=== PATIENT | male | born 1935 | race Caucasian/White ===

== ENCOUNTER → 2019-10-16 | Outpatient (CLI) | payer MEDICARE, BC, OTHER ==
--- NOTE | 2019-10-16 08:51 | REP ---
Urinary tract sonogram: History: Chronic kidney disease stage III. Comparison: No comparison study. Findings: Scanning at the level of the urinary bladder shows no abnormality. Renal cortical echogenicity pattern is normal bilaterally and contours are smooth. There is no evidence of hydronephrosis, cyst, mass, or calculus in either kidney. Prostate appears mildly prominent measuring 5.0 x 4.3 x 4.6 cm on transabdominal images. Calculated glandular volume 52 ml. The right kidney measures 10.3 x 5.8 x 5.1 cm. Left renal dimensions are 10.4 x 5.0 x 5.2 cm. Impression: Enlarged prostate gland, otherwise negative urinary tract sonography. Electronically Signed by Mamadou Grey MD 10/16/2019 08:43 A
--- NOTE | 2019-10-16 11:03 | REP ---
RENAL NUCLEAR SCAN WITH FLOW AND FUNCTION: Following the intravenous administration of 8.8 millicuries technetium 99m MAG3, immediate flow images are obtained in the posterior projection. There is a greater degree of perfusion of the right kidney compared to the left. Delayed renal function images are performed in the posterior projections for 30 minutes. Both kidneys are symmetrical in size. There is bilateral cortical uptake with no focal defect. Bilateral symmetrical excretion. There appears to be an extrarenal pelvis bilaterally with no hydronephrosis. Splint function is 35.2% on the left and 64.8% on the right. [id number] is 3 minutes bilaterally. T-1/2 could not be calculated because is it in excess of 30 minutes. Renal function curves are markedly shallow in their downward slopes. There is mild postvoid residual in the urinary bladder after voiding with clearance of the activity from each renal pelvis. IMPRESSION: Compromised renal function bilaterally with no evidence of urinary tract obstruction. There is a greater degree of split function on the right compared to the left. Electronically Signed by Jasson Coleman MD 10/16/2019 12:18 P
== END ==
LOC: M RAD 08:07
PROVIDERS: ATTEND Internal Medicine Nephrology
DX: N18.3 Chronic kidney disease, stage 3 (moderate) (principal); I12.9 Hypertensive chronic kidney disease with stage 1 through stage 4 chronic kidney disease, or unspecified chronic kidney disease
CPT/HCPCS: 76775; 78707; A9562

== ENCOUNTER → 2020-03-03 | Outpatient (REF) | payer MEDICARE, OTHER ==
[2020-03-03 19:13] LABS: PERCENT SATURATION 22.4 % (19.7-50.0)
== END ==
LOC: M LAB REF 18:26
PROVIDERS: ATTEND Internal Medicine Nephrology
DX: D50.9 Iron deficiency anemia, unspecified (principal)

== ENCOUNTER → 2021-01-29 | Outpatient (CLI) | payer MEDICARE, OTHER ==
--- NOTE | 2021-01-29 14:30 | REP ---
INDICATION: SCIATICA. COMPARISON: 10/03/2006. TECHNIQUE: Seven views lumbosacral spine including flexion and extension lateral views. FINDINGS: There is no compression fracture. There is minimal fixed retrolisthesis of L2 on L3 and L3 on L4, as well as anterolisthesis of L4 on L5 and L5 on S1. These findings do not change with flexion or extension. There is moderate diffuse spurring again noted. There is moderate disc space narrowing and subchondral sclerosis at L2-3 through L5-S1. There is sclerosis and spurring at the posterior facet joints at L4-5 and L5-S1. The posterior elements are intact. There is mild curvature toward the right. IMPRESSION: Diffuse degenerative changes as discussed in detail above, not significantly changed compared to the prior study. <Electronically signed by Jasson Coleman > 01/29/21 [id number]
== END ==
LOC: M PLALAB 13:53
PROVIDERS: ATTEND Physician Assistant
DX: M54.41 Lumbago with sciatica, right side (principal); M51.36 Other intervertebral disc degeneration, lumbar region
CPT/HCPCS: 72114; 96372; G0463; J1040

== ENCOUNTER → 2021-02-10 | Outpatient (CLI) | payer MEDICARE, BC, OTHER ==
--- NOTE | 2021-02-10 10:15 | REPVR ---
PROCEDURE INFORMATION: Exam: MR Lumbar Spine Without Contrast Exam date and time: 02/10/2021 9:08 AM Age: 85 years old Clinical indication: Low back pain; Additional info: Acute RT side lbp w/ stenosis TECHNIQUE: Imaging protocol: Multiplanar magnetic resonance images of the lumbar spine without intravenous contrast. COMPARISON: CR Spine,LS wBENDING MIN 6 VIEWS 01/29/2021 2:18 PM FINDINGS: Vertebrae: Mild dextroscoliosis. 5 mm grade 1 spondylolisthesis of L5 over S1. Otherwise,The lumbar vertebral bodies are normal in height,signal intensity and alignment.No acute fracture or dislocation is seen. Spinal epidural space: There is no evidence of epidural masses or hemorrhage. Spinal cord: The conus medullaris is normal. L1-L2: There is no significant degenerative disc herniation.The spinal canal and neural foramina are patent and without significant stenosis. L2-L3: Markedly reduced in height and T2 signal indicating degeneration. Moderate degenerative endplate changes. Moderate diffuse posterior herniation with mild inferior migration. Moderate facet arthropathy.There is thickening of the ligamentum flavum.There is severe spinal canal stenosis, with an AP canal dimension of 6 mm. There is compression on the thecal sac and crowding of the cauda equina nerve roots at this level.There is moderate right foraminal stenosis. There is severe left foraminal stenosis. L3-L4: Moderately reduced in height and T2 signal indicating degeneration. Moderate posterior and right foraminal protrusion. Moderate left foraminal protrusion. Moderate facet arthropathy.There is thickening of the ligamentum flavum.There is moderate spinal canal stenosis, with an AP canal dimension of 8 mm. There is compression on the thecal sac and crowding of the cauda equina nerve roots at this level.There is severe bilateral foraminal stenosis. L4-L5: Markedly reduced in height and T2 signal indicating degeneration. Moderate degenerative endplate changes. Small diffuse posterior herniation. Severe facet arthropathy.There is thickening of the ligamentum flavum.There is severe spinal canal stenosis, with an AP canal dimension of 6 mm. There is compression on the thecal sac and crowding of the cauda equina nerve roots at this level.There is severe bilateral foraminal stenosis. L5-S1: Moderately reduced in height and T2 signal indicating degeneration. Moderate diffuse posterior herniation. Severe facet arthropathy.There is severe spinal canal stenosis, with an AP canal dimension of 6 mm. There is compression on the thecal sac and crowding of the cauda equina nerve roots at this level.There is severe bilateral foraminal stenosis. Soft tissues: The prevertebral soft tissues appear normal. 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 Electronically signed by: Ishmael Sauer On 02/10/2021 10:15:45 AM
== END ==
LOC: M RAD 07:31
PROVIDERS: ATTEND Physician Assistant
DX: M54.41 Lumbago with sciatica, right side (principal); M48.061 Spinal stenosis, lumbar region without neurogenic claudication; M47.26 Other spondylosis with radiculopathy, lumbar region

== ENCOUNTER → 2021-03-23 | Outpatient (REF) | payer MEDICARE, BC, OTHER ==
[2021-03-24 14:29] LABS: PERCENT SATURATION 15.3 % (19.7-50.0)
== END ==
LOC: M LAB REF 13:05
PROVIDERS: ATTEND Internal Medicine Nephrology
DX: D50.9 Iron deficiency anemia, unspecified (principal)

== ENCOUNTER 2022-03-01 16:33 | Emergency (ER) | payer MEDICARE, BC, OTHER ==
[~2022-03-01] VITALS: Ht 162.6 cm; Wt 61.4 kg
[2022-03-01 17:12] LABS: BASO % 0.4 % (0.0-1.0); EOS # 0.3 10^3/uL (0.0-0.5); EOS % 3.2 % (0.0-3.0); HEMATOCRIT 31.9 % (42.0-52.0); HEMOGLOBIN 10.5 g/dl (13.5-17.5); LYMPH # 1.3 10^3/uL (1.5-5.0); LYMPH % 15.9 % (24.0-44.0); MEAN CORPUSCULAR HEMOGLOBIN 32.2 pg (27.0-33.0); MEAN CORPUSCULAR HGB CONC 32.9 g/dl (32.0-36.5); MEAN CORPUSCULAR VOLUME 97.9 fl (80.0-96.0); MONO # 0.9 10^3/uL (0.0-0.8); MONO % 10.7 % (2.0-8.0); NEUTROPHILS # 5.6 10^3/uL (1.5-8.5); NEUTROPHILS % 69.3 % (36.0-66.0); PLATELET COUNT, AUTOMATED 268 10^3/uL (150-450); RED BLOOD COUNT 3.26 10^6/uL (4.30-6.10); WHITE BLOOD COUNT 8.1 10^3/uL (4.0-10.0)
[2022-03-01] MEDS ORDERED: NITROGLYCERIN 0.4 MG SUBL TABLET SL PRN (17:35)
[2022-03-01 17:49] LABS: CALCIUM LEVEL 8.8 MG/DL (8.8-10.2); CREATININE FOR GFR 2.33 MG/DL (0.70-1.30); GLOMERULAR FILTRATION RATE 28.4 (>35); POTASSIUM SERUM 5.5 MEQ/L (3.5-5.1)
[2022-03-01] MEDS ORDERED: HEPARIN SOD (PORCINE) 5000UNITS/ML 1ML VIAL/SYRINGE IV ONE (21:20)
[2022-03-01] MEDS ORDERED: HEPARIN SOD (PORCINE) 5000UNITS/ML 1ML VIAL/SYRINGE IV PRN (21:20)
[2022-03-01 22:28] LABS: HEMATOCRIT 31.2 % (42.0-52.0); HEMOGLOBIN 10.1 g/dl (13.5-17.5); MEAN CORPUSCULAR HEMOGLOBIN 31.9 pg (27.0-33.0); MEAN CORPUSCULAR HGB CONC 32.4 g/dl (32.0-36.5); MEAN CORPUSCULAR VOLUME 98.4 fl (80.0-96.0); PLATELET COUNT, AUTOMATED 255 10^3/uL (150-450); RED BLOOD COUNT 3.17 10^6/uL (4.30-6.10); WHITE BLOOD COUNT 7.1 10^3/uL (4.0-10.0)
[2022-03-01 22:39] LABS: PARTIAL THROMBOPLASTIN TIME 26.7 SECONDS (25.9-37.0)
[2022-03-01 22:41] LABS: D-DIMER QUANT 1180.1 ng/ml (<500)
[2022-03-01 22:47] LABS: RSV AMPLIFICATION NEGATIVE (NEGATIVE)
[2022-03-01] MEDS: HEPARIN DRIP 25,000 UNITS in IV 1 EA IV SCH (22:50)
[2022-03-02] MEDS: HEPARIN DRIP 25,000 UNITS in IV 1 EA IV SCH (06:37)
[2022-03-02 06:38] VITALS: BP 176/74
== END 2022-03-02 06:42 | disposition short-term general hospital (02) ==
LOC: M ED 16:33
DX: I21.4 Non-ST elevation (NSTEMI) myocardial infarction (principal); I10 Essential (primary) hypertension; E78.5 Hyperlipidemia, unspecified; N18.30 Chronic kidney disease, stage 3 unspecified; N40.0 Benign prostatic hyperplasia without lower urinary tract symptoms; M10.9 Gout, unspecified; M00-M99 Diseases of the musculoskeletal system and connective tissue; Z87.891 Personal history of nicotine dependence
CPT/HCPCS: 71045; 80048; 84484; 85025; 85027; 85379; 85730; 87631; 93005; 93041; 94760; 96365; 96366; 99285; J1644

== ENCOUNTER → 2022-03-11 | Outpatient (REF) | payer MEDICARE, BC, OTHER ==
[2022-03-11 19:18] LABS: PERCENT SATURATION 21.4 % (19.7-50.0)
== END ==
LOC: M LAB REF 16:53
PROVIDERS: ATTEND Internal Medicine Nephrology
DX: D50.9 Iron deficiency anemia, unspecified (principal)

== ENCOUNTER 2022-04-19 11:48 | Emergency (ER) | payer MEDICARE, BC, OTHER ==
[~2022-04-19] VITALS: Ht 165.1 cm; Wt 61.4 kg
[2022-04-19 12:29] LABS: BASO % 0.3 % (0.0-1.0); EOS # 0.2 10^3/uL (0.0-0.5); EOS % 1.9 % (0.0-3.0); HEMATOCRIT 30.7 % (42.0-52.0); HEMOGLOBIN 9.7 g/dl (13.5-17.5); LYMPH # 1.3 10^3/uL (1.5-5.0); LYMPH % 11.5 % (24.0-44.0); MEAN CORPUSCULAR HEMOGLOBIN 31.2 pg (27.0-33.0); MEAN CORPUSCULAR HGB CONC 31.6 g/dl (32.0-36.5); MEAN CORPUSCULAR VOLUME 98.7 fl (80.0-96.0); MONO % 8.6 % (2.0-8.0); NEUTROPHILS # 8.5 10^3/uL (1.5-8.5); NEUTROPHILS % 77.2 % (36.0-66.0); PLATELET COUNT, AUTOMATED 273 10^3/uL (150-450); RED BLOOD COUNT 3.11 10^6/uL (4.30-6.10)
[2022-04-19 12:41] LABS: INR 1.06
[2022-04-19 12:42] LABS: PARTIAL THROMBOPLASTIN TIME 25.4 SECONDS (24.8-34.2)
[2022-04-19 13:12] LABS: ALBUMIN 3.3 G/DL (3.2-5.2); BILIRUBIN,DIRECT 0.2 MG/DL (<0.4); BILIRUBIN,TOTAL 0.5 MG/DL (0.3-1.2); CALCIUM LEVEL 8.5 MG/DL (8.3-10.6); CK-MB VALUE MASS 1.8 NG/ML (<3.6); CREATININE FOR GFR 1.91 MG/DL (0.70-1.30); FREE T4 1.05 NG/DL (0.89-1.76); GLOMERULAR FILTRATION RATE 35.7 (>35); MAGNESIUM LEVEL 1.6 MG/DL (1.8-2.4); MB/CK RELATIVE INDEX 3.33 (< OR =4); POTASSIUM SERUM 5.1 MMOL/L (3.5-5.1); THYROID STIMULATING HORMONE 0.269 uIU/ML (0.55-4.78); TOTAL PROTEIN 6.2 G/DL (5.7-8.2)
[2022-04-19 13:59] LABS: CK-MB VALUE MASS 1.5 NG/ML (<3.6); MB/CK RELATIVE INDEX 3.57 (< OR =4)
[2022-04-19] MEDS ORDERED: MAG SULF 1GM/100ML (MAG RUN) 1 GM in IV 1 EA IV ONE ×2 (14:30→14:35)
[2022-04-19] MEDS ORDERED: clonazePAM 0.5 MG TAB PO ONE (14:35)
[2022-04-19] MEDS ORDERED: MAGN64TASA PO (18:15)
[2022-04-19] MEDS ORDERED: CLON0.5T17 PO (18:15)
[2022-04-19 18:21] VITALS: BP 163/74
[2022-04-19 21:06] LABS: CHOLESTEROL RISK RATIO 2.83 (<5); HDL CHOLESTEROL 39.9 MG/DL (>40); LDL CHOLESTEROL 44.1 MG/DL (<100)
== END 2022-04-19 18:37 | disposition home or self-care (01) ==
LOC: M ED 11:48
DX: I49.8 Other specified cardiac arrhythmias (principal); E83.42 Hypomagnesemia; I10 Essential (primary) hypertension; E78.5 Hyperlipidemia, unspecified; Z95.5 Presence of coronary angioplasty implant and graft; Z82.49 Family history of ischemic heart disease and other diseases of the circulatory system
CPT/HCPCS: 71045; 80048; 80061; 80076; 82550; 82553; 83690; 83735; 84439; 84443; 84484; 85025; 85610; 85730; 93005; 93041; 94760; 96365; 96366; 96376; 99285; J3475

== ENCOUNTER → 2022-04-30 | Outpatient (CLI) | payer MEDICARE, BC, OTHER ==
[~2022-04-30] MED LIST: CLON0.5T17 PO; MAGN64TASA PO
[2022-04-30 18:21] LABS: BASO % 0.4 % (0.0-1.0); EOS # 0.4 10^3/uL (0.0-0.5); EOS % 5.4 % (0.0-3.0); HEMATOCRIT 31.6 % (42.0-52.0); LYMPH # 1.2 10^3/uL (1.5-5.0); LYMPH % 16.6 % (24.0-44.0); MEAN CORPUSCULAR HEMOGLOBIN 31.9 pg (27.0-33.0); MEAN CORPUSCULAR HGB CONC 31.6 g/dl (32.0-36.5); MONO # 0.8 10^3/uL (0.0-0.8); MONO % 10.5 % (2.0-8.0); NEUTROPHILS # 4.9 10^3/uL (1.5-8.5); NEUTROPHILS % 66.8 % (36.0-66.0); PLATELET COUNT, AUTOMATED 262 10^3/uL (150-450); RED BLOOD COUNT 3.13 10^6/uL (4.30-6.10); WHITE BLOOD COUNT 7.4 10^3/uL (4.0-10.0)
[2022-04-30 19:33] LABS: HEMOGLOBIN A1c 6.3 % (4.0-6.0)
[2022-04-30 19:36] LABS: MAGNESIUM LEVEL 1.7 MG/DL (1.8-2.4)
[2022-04-30 20:39] LABS: FREE T4 0.87 NG/DL (0.89-1.76)
[2022-04-30 21:10] LABS: ALBUMIN 3.5 G/DL (3.2-5.2); BLOOD UREA NITROGEN 45 MG/DL (9-23); CALCIUM LEVEL 9.4 MG/DL (8.3-10.6); CARBON DIOXIDE LEVEL 21 MMOL/L (20-31); CHLORIDE LEVEL 114 MMOL/L (98-107); CREATININE FOR GFR 1.83 MG/DL (0.70-1.30); FERRITIN 102.6 NG/ML (10.5-307.3); GLOMERULAR FILTRATION RATE 37.5 (>35); GLUCOSE, FASTING 120 MG/DL (74-106); PHOSPHORUS LEVEL 3.2 MG/DL (2.4-5.1); POTASSIUM SERUM 6.2 MMOL/L (3.5-5.1); SODIUM LEVEL 142 MMOL/L (136-145); THYROID PEROXIDASE ANTIBODY < 28.0 U/ML (<60.0); THYROID STIMULATING HORMONE 0.442 uIU/ML (0.55-4.78); TOTAL PROTEIN 6.6 GM/DL (6.4-8.2); VITAMIN B12 LEVEL 580 PG/ML (211-911)
== END ==
LOC: M PLALAB 14:45
PROVIDERS: ATTEND Family Medicine
DX: I10 Essential (primary) hypertension (principal); D63.8 Anemia in other chronic diseases classified elsewhere; Z12.5 Encounter for screening for malignant neoplasm of prostate; R73.01 Impaired fasting glucose; E78.2 Mixed hyperlipidemia
CPT/HCPCS: 36415; 80069; 82607; 82728; 83036; 83735; 83880; 84165; 84439; 84443; 84445; 85025; 86335; 86376; G0103

== ENCOUNTER → 2022-08-26 | Outpatient (REF) | payer MEDICARE, OTHER ==
[2022-08-26 17:56] LABS: PERCENT SATURATION 27.5 % (19.7-50.0)
[2022-08-26 17:59] LABS: FERRITIN 404.7 NG/ML (10.5-307.3)
== END ==
LOC: M LAB REF 16:58
PROVIDERS: ATTEND Internal Medicine Nephrology
DX: D50.9 Iron deficiency anemia, unspecified (principal)

== ENCOUNTER 2022-09-04 11:42 | Inpatient (IN) | payer MEDICARE, BC, OTHER ==
[2022-09-04] VITALS (8 sets, daily range): BP systolic 130–170; BP diastolic 59–91
[~2022-09-04] VITALS: Ht 162.6 cm; Wt 68.9 kg
[2022-09-04] MEDS: ASPIRIN 81MG ENTERIC TABLET PO SCH (09:00)
[2022-09-04 12:57] LABS: BASO % 0.2 % (0.0-1.0); EOS % 0.2 % (0.0-3.0); HEMATOCRIT 23.2 % (42.0-52.0); LYMPH # 0.6 10^3/uL (1.5-5.0); LYMPH % 4.6 % (24.0-44.0); MEAN CORPUSCULAR HEMOGLOBIN 31.7 pg (27.0-33.0); MEAN CORPUSCULAR HGB CONC 34.5 g/dl (32.0-36.5); MEAN CORPUSCULAR VOLUME 92.1 fl (80.0-96.0); MONO # 1.2 10^3/uL (0.0-0.8); MONO % 9.4 % (2.0-8.0); NEUTROPHILS # 10.6 10^3/uL (1.5-8.5); NEUTROPHILS % 85.1 % (36.0-66.0); PLATELET COUNT, AUTOMATED 234 10^3/uL (150-450); RED BLOOD COUNT 2.52 10^6/uL (4.30-6.10); WHITE BLOOD COUNT 12.4 10^3/uL (4.0-10.0)
[2022-09-04 13:18] LABS: INR 1.14; PROTHROMBIN TIME 14.8 SECONDS (12.5-14.5)
[2022-09-04 13:19] LABS: PARTIAL THROMBOPLASTIN TIME 31.4 SECONDS (24.8-34.2)
[2022-09-04 13:45] LABS: ALBUMIN 2.2 G/DL (3.2-5.2); BILIRUBIN,DIRECT 0.6 MG/DL (<0.4); BILIRUBIN,TOTAL 0.9 MG/DL (0.3-1.2); CALCIUM LEVEL 7.4 MG/DL (8.3-10.6); CK-MB VALUE MASS 122.1 NG/ML (<3.6); CREATININE FOR GFR 8.92 MG/DL (0.70-1.30); FREE T4 0.62 NG/DL (0.89-1.76); MB/CK RELATIVE INDEX 0.35 (< OR =4); POTASSIUM SERUM 6.8 MMOL/L (3.5-5.1); THYROID STIMULATING HORMONE 0.627 uIU/ML (0.55-4.78); TOTAL PROTEIN 5.8 G/DL (5.7-8.2)
[2022-09-04] MEDS ORDERED: CALCIUM GLUCONATE 1,000 MG in D5W MINI-BAG PLUS 100 ML IV ONE (14:10)
[2022-09-04] MEDS ORDERED: SODIUM BICARBONATE 150 MEQ in STERILE WATER LITER BAG 1,000 ML IV SCH (14:10)
[2022-09-04 14:40] LABS: ACETAMINOPHEN LEVEL < 2.0 UG/ML (10.0-20.0); SALICYLATE LEVEL < 3.0 MG/DL (<30)
[2022-09-04 14:44] LABS: ABG HCO3 11.8 MEQ/L (22.0-26.0); ABG O2 SATURATION 97.6 % (95.0-99.0); ABG PARTIAL PRESSURE CO2 27.3 mmHg (35.0-45.0); ABG PARTIAL PRESSURE O2 112.1 mmHg (75.0-100.0); ABG STANDARD HCO3 13.4 MEQ/L (22.0-26.0); ABG TOTAL CO2 12.7 MEQ/L (23.0-31.0); ABG pH (ARTERIAL) 7.255 UNITS (7.350-7.450)
[2022-09-04] MEDS ORDERED: DEXTROSE 50% 50ML SYRINGE IV STA ×2 (14:53→23:09)
[2022-09-04] MEDS ORDERED: HumuLIN R (REGULAR) INSULIN (NovoLIN R) **100U/ML** PER UNIT IV STA ×2 (14:53→23:09)
[2022-09-04 14:56] LABS: CK-MB VALUE MASS 114.1 NG/ML (<3.6); CPK CREATINE PHOSPHOKINASE 33833 U/L (46-171); MB/CK RELATIVE INDEX 0.33 (< OR =4); POTASSIUM SERUM 6.7 MMOL/L (3.5-5.1)
[2022-09-04] MEDS ORDERED: ATOR80TA59 PO (15:02)
[2022-09-04] MEDS ORDERED: TRAV04OPD OU (15:02)
[2022-09-04] MEDS ORDERED: CLOP75TA2 PO (15:02)
[2022-09-04] MEDS ORDERED: MAGN50TA PO (15:02)
[2022-09-04] MEDS ORDERED: VELT1POW3 PO (15:02)
[2022-09-04] MEDS ORDERED: ALLO100T PO (15:02)
[2022-09-04] MEDS ORDERED: TORS10TA3 PO (15:02)
[2022-09-04] MEDS ORDERED: AMLO1TAB24 PO (15:02)
[2022-09-04] MEDS ORDERED: AZILSARTAN MEDOXOMIL PO (15:02)
[2022-09-04] MEDS ORDERED: HOME MED LIST COMPLETE! XX SCH (15:05)
[2022-09-04] MEDS ORDERED: PATIROMER SORBITEX CALCIUM 8.4 GM POWDER PACKET (VELTASSA) PO ONE (15:20)
[2022-09-04] MEDS ORDERED: ALBUTEROL SULFATE 2.5MG/0.5ML INH NEB SOLN NEB ONE (15:25)
[2022-09-04] MEDS ORDERED: DEXTROSE 50% 50ML SYRINGE IV PRN (15:45)
[2022-09-04] MEDS ORDERED: GLUCOSE 4GM CHEW TABLET PO PRN (15:45)
[2022-09-04] MEDS ORDERED: GLUCAGON INJ 1MG VIAL SC PRN (15:45)
[2022-09-04] MEDS: PANTOPRAZOLE 40MG VIAL IV SCH (16:24)
[2022-09-04] MEDS: HEPARIN SOD (PORCINE) 5000UNITS/ML 1ML VIAL/SYRINGE SC SCH (16:25)
[2022-09-04] MEDS ORDERED: INSULIN LISPRO (NovoLOG) PER UNIT SC SCH ×2 (18:00→23:10)
[2022-09-04] MEDS ORDERED: LIDOCAINE 2% 5ML JELLY UROJET TOP ONE (18:00)
[2022-09-04] MEDS: SODIUM BICARBONATE 150 MEQ in STERILE WATER LITER BAG 1,000 ML IV SCH ×2 (18:07→22:17)
[2022-09-04 19:55] LABS: CALCIUM LEVEL 7.6 MG/DL (8.3-10.6); CREATININE FOR GFR 9.04 MG/DL (0.70-1.30); GLOMERULAR FILTRATION RATE 5.9 (>35); POTASSIUM SERUM 5.8 MMOL/L (3.5-5.1)
[2022-09-04 20:10] LABS: HEPATITIS B SURFACE ANTIGEN NEGATIVE (NEGATIVE)
[2022-09-04 20:31] LABS: HEPATITIS B CORE ANTIBODY IGM NEGATIVE (NEGATIVE); HEPATITIS C VIRUS ABY INDEX < 0.0 INDEX (<0.8)
[2022-09-04] MEDS: INSULIN LISPRO (NovoLOG) PER UNIT SC SCH (21:00)
[2022-09-04 22:59] LABS: CALCIUM LEVEL 7.4 MG/DL (8.3-10.6); CREATININE FOR GFR 9.07 MG/DL (0.70-1.30); GLOMERULAR FILTRATION RATE 5.9 (>35)
[2022-09-05] VITALS (46 sets, daily range): BP systolic 67–159; BP diastolic 49–77
[2022-09-05] MEDS: HEPARIN SOD (PORCINE) 5000UNITS/ML 1ML VIAL/SYRINGE SC SCH ×4 (00:28→21:41)
[2022-09-05] MEDS: HYDROMORPHONE HCL 0.5 MG/ 0.5 ML SYRINGE IV PRN ×3 (00:29→18:54)
[2022-09-05 01:04] LABS: HEMOGLOBIN 7.4 g/dl (13.5-17.5)
[2022-09-05 01:07] LABS: HEMATOCRIT 20.9 % (42.0-52.0)
[2022-09-05 06:54] LABS: ALBUMIN 1.9 G/DL (3.2-5.2); BILIRUBIN,TOTAL 0.8 MG/DL (0.3-1.2); CALCIUM LEVEL 7.3 MG/DL (8.3-10.6); CREATININE FOR GFR 9.14 MG/DL (0.70-1.30); GLOMERULAR FILTRATION RATE 5.9 (>35); POTASSIUM SERUM 5.3 MMOL/L (3.5-5.1); TOTAL PROTEIN 5.1 G/DL (5.7-8.2)
[2022-09-05] MEDS ORDERED: FUROSEMIDE 100MG/10ML VIAL IV ONE (07:00)
[2022-09-05] MEDS: INSULIN LISPRO (NovoLOG) PER UNIT SC SCH ×4 (08:07→21:00)
[2022-09-05] MEDS: SODIUM BICARBONATE 150 MEQ in STERILE WATER LITER BAG 1,000 ML IV SCH (08:59)
[2022-09-05 09:07] LABS: VENOUS HCO3 19.5 MEQ/L (23.0-27.0); VENOUS O2 SATURATION 87.4 % (60.0-80.0); VENOUS PARTIAL PRESSURE CO2 38.3 mmHg (38.0-50.0); VENOUS PH 7.324 UNITS (7.330-7.430); VENOUS STANDARD HCO3 19.3 MEQ/L; VENOUS TOTAL CO2 20.6 MEQ/L (24.0-28.0)
[2022-09-05 09:22] LABS: HEMATOCRIT 22.2 % (42.0-52.0); HEMOGLOBIN 7.9 g/dl (13.5-17.5); MEAN CORPUSCULAR HEMOGLOBIN 32.4 pg (27.0-33.0); MEAN CORPUSCULAR HGB CONC 35.6 g/dl (32.0-36.5); PLATELET COUNT, AUTOMATED 216 10^3/uL (150-450); RED BLOOD COUNT 2.44 10^6/uL (4.30-6.10); WHITE BLOOD COUNT 11.3 10^3/uL (4.0-10.0)
[2022-09-05 09:34] LABS: BLOOD UREA NITROGEN 146 MG/DL (9-23); CALCIUM LEVEL 7.5 MG/DL (8.3-10.6); CARBON DIOXIDE LEVEL 20 MMOL/L (20-31); CHLORIDE LEVEL 91 MMOL/L (98-107); CREATININE FOR GFR 9.08 MG/DL (0.70-1.30); GLOMERULAR FILTRATION RATE 5.9 (>35); GLUCOSE, FASTING 141 MG/DL (74-106); POTASSIUM SERUM 5.1 MMOL/L (3.5-5.1); SODIUM LEVEL 128 MMOL/L (136-145)
[2022-09-05] MEDS ORDERED: HEPARIN 1,000UNITS/ML 10ML VIAL (FOR RADIOLOGY & DIALYSIS ONLY) IV PRN (09:40)
[2022-09-05] MEDS ORDERED: SODIUM CHLORIDE 0.9% 1000ML IV PRN (09:40)
[2022-09-05] MEDS ORDERED: HEPARIN 1,000UNITS/ML 10ML VIAL (FOR RADIOLOGY & DIALYSIS ONLY) XX SCH (09:40)
[2022-09-05 12:10] LABS: HEPATITIS B SURFACE ANTIBODY POSITIVE (POSITIVE)
[2022-09-05 12:22] LABS: HEPATITIS B SURFACE ANTIGEN NEGATIVE (NEGATIVE)
[2022-09-05] MEDS ORDERED: oxyBUTYnin 5 MG TAB PO PRN (12:30)
[2022-09-05 12:43] LABS: HEPATITIS B CORE ANTIBODY IGM NEGATIVE (NEGATIVE); HEPATITIS C VIRUS ABY INDEX < 0.0 INDEX (<0.8)
[2022-09-05] MEDS ORDERED: LIDOCAINE 2% 5ML JELLY UROJET TOP ONE (14:00)
[2022-09-05] MEDS: CLOPIDOGREL 75 MG TAB PO SCH (15:15)
[2022-09-05] MEDS: ASPIRIN 81MG ENTERIC TABLET PO SCH (15:15)
[2022-09-05] MEDS ORDERED: LORazepam 2 MG/ML 1ML VIAL As Ordered ONE (15:16)
[2022-09-05] MEDS ORDERED: LORazepam 2 MG/ML 1ML VIAL IV STA ×2 (15:17→18:28)
[2022-09-05] MEDS: PANTOPRAZOLE 40MG VIAL IV SCH (16:11)
[2022-09-05 17:23] LABS: CALCIUM LEVEL 7.9 MG/DL (8.3-10.6); CREATININE FOR GFR 4.77 MG/DL (0.70-1.30); GLOMERULAR FILTRATION RATE 12.4 (>35); POTASSIUM SERUM 4.8 MMOL/L (3.5-5.1)
[2022-09-05] MEDS ORDERED: NS 250 ML IV ONE (22:45)
[2022-09-05] MEDS ORDERED: HALOPERIDOL 5MG/ML 1ML VIAL IM STA (22:50)
[2022-09-06] VITALS (74 sets, daily range): BP systolic 71–175; BP diastolic 35–105
[2022-09-06] MEDS ORDERED: NS 250 ML IV ONE ×2 (00:20→05:35)
[2022-09-06] MEDS ORDERED: OLANZapine INTRAMUSCULAR 10MG VIAL IM ONE (01:00)
[2022-09-06] MEDS ORDERED: HALOPERIDOL 5MG/ML 1ML VIAL IM STA (03:06)
[2022-09-06] MEDS: HYDROMORPHONE HCL 0.5 MG/ 0.5 ML SYRINGE IV PRN (04:07)
[2022-09-06 05:35] LABS: MEAN CORPUSCULAR HEMOGLOBIN 32.5 pg (27.0-33.0); MEAN CORPUSCULAR HGB CONC 35.7 g/dl (32.0-36.5); MEAN CORPUSCULAR VOLUME 91.1 fl (80.0-96.0); PLATELET COUNT, AUTOMATED 164 10^3/uL (150-450); RED BLOOD COUNT 1.69 10^6/uL (4.30-6.10); WHITE BLOOD COUNT 13.6 10^3/uL (4.0-10.0)
[2022-09-06 05:42] LABS: HEMATOCRIT 15.4 % (42.0-52.0); HEMOGLOBIN 5.5 g/dl (13.5-17.5)
[2022-09-06] MEDS: HEPARIN SOD (PORCINE) 5000UNITS/ML 1ML VIAL/SYRINGE SC SCH (06:00)
[2022-09-06 06:36] LABS: ALBUMIN 1.9 G/DL (3.2-5.2); BILIRUBIN,TOTAL 0.8 MG/DL (0.3-1.2); CALCIUM LEVEL 8.1 MG/DL (8.3-10.6); CREATININE FOR GFR 5.89 MG/DL (0.70-1.30); GLOMERULAR FILTRATION RATE 9.7 (>35); POTASSIUM SERUM 5.2 MMOL/L (3.5-5.1)
[2022-09-06] MEDS ORDERED: SODIUM CHLORIDE 0.9% 1000ML IV PRN (06:55)
[2022-09-06] MEDS ORDERED: HEPARIN 1,000UNITS/ML 10ML VIAL (FOR RADIOLOGY & DIALYSIS ONLY) XX SCH (06:55)
[2022-09-06] MEDS ORDERED: HEPARIN 1,000UNITS/ML 10ML VIAL (FOR RADIOLOGY & DIALYSIS ONLY) IV PRN (06:55)
[2022-09-06] MEDS: INSULIN LISPRO (NovoLOG) PER UNIT SC SCH ×3 (07:30→18:00)
[2022-09-06] MEDS: NOREPINEPHRINE 4MG IN D5 250ML 4 MG in IV 1 EA IV SCH ×4 (08:48→16:40)
[2022-09-06 08:50] LABS: HEMATOCRIT 17.4 % (42.0-52.0); HEMOGLOBIN 6.1 g/dl (13.5-17.5)
[2022-09-06] MEDS ORDERED: NALOXONE INJ 0.4MG/1ML VIAL As Ordered ONE (08:51)
[2022-09-06] MEDS: ASPIRIN 81MG ENTERIC TABLET PO SCH (09:00)
[2022-09-06] MEDS: CLOPIDOGREL 75 MG TAB PO SCH (09:00)
[2022-09-06] MEDS ORDERED: NOREPINEPHRINE BITARTRATE 16 MG in D5W 484 ML IV SCH (09:15)
[2022-09-06] MEDS ORDERED: NALOXONE INJ 0.4MG/1ML VIAL IV PRN (09:15)
[2022-09-06] MEDS ORDERED: SODIUM CHLORIDE 0.9% 1000ML IV ONE (09:15)
[2022-09-06] MEDS ORDERED: dexmedeTOMidine 200 MCG in IV 1 EA IV SCH (09:30)
[2022-09-06] MEDS ORDERED: NALOXONE INJ 0.4MG/1ML VIAL IV ONE (10:15)
[2022-09-06 11:43] LABS: ABG O2 SATURATION 99.1 % (95.0-99.0); ABG PARTIAL PRESSURE CO2 28.6 mmHg (35.0-45.0); ABG STANDARD HCO3 18.7 MEQ/L (22.0-26.0); ABG TOTAL CO2 17.9 MEQ/L (23.0-31.0); ABG pH (ARTERIAL) 7.393 UNITS (7.350-7.450)
[2022-09-06] MEDS ORDERED: LORazepam 2 MG/ML 1ML VIAL IV STA (11:59)
[2022-09-06 15:26] LABS: HEMATOCRIT 26.4 % (42.0-52.0); HEMOGLOBIN 9.2 g/dl (13.5-17.5)
[2022-09-06 15:55] LABS: ALBUMIN 2.1 G/DL (3.2-5.2); CALCIUM LEVEL 8.5 MG/DL (8.3-10.6); CREATININE FOR GFR 6.02 MG/DL (0.70-1.30); GLOMERULAR FILTRATION RATE 9.5 (>35); PHOSPHORUS LEVEL 8.3 MG/DL (2.4-5.1); POTASSIUM SERUM 5.6 MMOL/L (3.5-5.1)
[2022-09-06] MEDS: PANTOPRAZOLE 40MG VIAL IV SCH (17:03)
[2022-09-07] VITALS (32 sets, daily range): BP systolic 87–143; BP diastolic 50–87
[2022-09-07] MEDS ORDERED: LORazepam 2 MG/ML 1ML VIAL IV STA ×5 (00:43→22:25)
[2022-09-07 05:09] LABS: HEPATITIS A IgG TOTAL Positive (Negative); HEPATITIS B CORE ANTIBODY IGG Negative (Negative)
[2022-09-07 05:34] LABS: BASO % 0.2 % (0.0-1.0); HEMATOCRIT 26.1 % (42.0-52.0); HEMOGLOBIN 9.1 g/dl (13.5-17.5); LYMPH # 0.5 10^3/uL (1.5-5.0); LYMPH % 2.8 % (24.0-44.0); MEAN CORPUSCULAR HEMOGLOBIN 32.2 pg (27.0-33.0); MEAN CORPUSCULAR HGB CONC 34.9 g/dl (32.0-36.5); MEAN CORPUSCULAR VOLUME 92.2 fl (80.0-96.0); MONO % 8.1 % (2.0-8.0); NEUTROPHILS # 17.3 10^3/uL (1.5-8.5); NEUTROPHILS % 88.4 % (36.0-66.0); PLATELET COUNT, AUTOMATED 213 10^3/uL (150-450); RED BLOOD COUNT 2.83 10^6/uL (4.30-6.10); WHITE BLOOD COUNT 19.6 10^3/uL (4.0-10.0)
[2022-09-07] MEDS: INSULIN LISPRO (NovoLOG) PER UNIT SC SCH ×4 (06:00→17:41)
[2022-09-07 06:44] LABS: ALBUMIN 2.2 G/DL (3.2-5.2); BILIRUBIN,TOTAL 1.1 MG/DL (0.3-1.2); CALCIUM LEVEL 8.2 MG/DL (8.3-10.6); CREATININE FOR GFR 6.9 MG/DL (0.70-1.30); GLOMERULAR FILTRATION RATE 8.1 (>35); MAGNESIUM LEVEL 1.9 MG/DL (1.8-2.4); PHOSPHORUS LEVEL 8.4 MG/DL (2.4-5.1); POTASSIUM SERUM 6.2 MMOL/L (3.5-5.1); TOTAL PROTEIN 5.6 G/DL (5.7-8.2)
[2022-09-07 06:50] LABS: MONO # 1.6 10^3/uL (0.0-0.8)
[2022-09-07] MEDS ORDERED: HEPARIN 1,000UNITS/ML 10ML VIAL (FOR RADIOLOGY & DIALYSIS ONLY) IV PRN (07:30)
[2022-09-07] MEDS ORDERED: HEPARIN 1,000UNITS/ML 10ML VIAL (FOR RADIOLOGY & DIALYSIS ONLY) XX SCH (07:30)
[2022-09-07] MEDS ORDERED: SODIUM CHLORIDE 0.9% 1000ML IV PRN (07:30)
[2022-09-07] MEDS ORDERED: NS 1,000 ML IV SCH (07:40)
[2022-09-07] MEDS ORDERED: SODIUM CHLORIDE 0.9% 1000ML IV ONE (08:10)
[2022-09-07] MEDS ORDERED: CLOPIDOGREL 75 MG TAB PO SCH (09:00)
[2022-09-07] MEDS ORDERED: MAG SULF 1GM/100ML (MAG RUN) 1 GM in IV 1 EA IV ONE (10:00)
[2022-09-07] MEDS: ASPIRIN 300 MG SUPP PR SCH (10:28)
[2022-09-07] MEDS: cefTRIAXone SOD 1 GM in D5W MINI-BAG PLUS 50 ML IV SCH (11:34)
[2022-09-07] MEDS ORDERED: methylPREDNISolone 40MG 1ML VIAL IV ONE (15:05)
[2022-09-07] MEDS: IPRATROPIUM 0.5MG/ALBUTEROL 2.5MG INH SOL UD 3ML (DUONEB) NEB SCH ×2 (16:10→23:09)
[2022-09-07] MEDS: PANTOPRAZOLE 40MG VIAL IV SCH (16:25)
[2022-09-08] VITALS (17 sets, daily range): BP systolic 91–142; BP diastolic 43–96
[2022-09-08] MEDS: HYDROMORPHONE HCL 0.5 MG/ 0.5 ML SYRINGE IV PRN (04:46)
[2022-09-08 06:29] LABS: BASO % 0.1 % (0.0-1.0); HEMATOCRIT 23.1 % (42.0-52.0); HEMOGLOBIN 7.7 g/dl (13.5-17.5); LYMPH # 0.5 10^3/uL (1.5-5.0); MEAN CORPUSCULAR HEMOGLOBIN 31.6 pg (27.0-33.0); MEAN CORPUSCULAR HGB CONC 33.3 g/dl (32.0-36.5); MEAN CORPUSCULAR VOLUME 94.7 fl (80.0-96.0); MONO # 0.5 10^3/uL (0.0-0.8); MONO % 2.8 % (2.0-8.0); NEUTROPHILS # 16.3 10^3/uL (1.5-8.5); NEUTROPHILS % 93.6 % (36.0-66.0); PLATELET COUNT, AUTOMATED 132 10^3/uL (150-450); RED BLOOD COUNT 2.44 10^6/uL (4.30-6.10); WHITE BLOOD COUNT 17.4 10^3/uL (4.0-10.0)
[2022-09-08] MEDS: INSULIN LISPRO (NovoLOG) PER UNIT SC SCH ×4 (07:07→18:50)
[2022-09-08] MEDS: IPRATROPIUM 0.5MG/ALBUTEROL 2.5MG INH SOL UD 3ML (DUONEB) NEB SCH ×3 (07:27→23:51)
[2022-09-08 08:02] LABS: ALBUMIN 1.7 G/DL (3.2-5.2); BILIRUBIN,TOTAL 0.9 MG/DL (0.3-1.2); CALCIUM LEVEL 7.6 MG/DL (8.3-10.6); CREATININE FOR GFR 4.74 MG/DL (0.70-1.30); GLOMERULAR FILTRATION RATE 12.5 (>35); TOTAL PROTEIN 4.3 G/DL (5.7-8.2)
[2022-09-08] MEDS: ASPIRIN 300 MG SUPP PR SCH (08:54)
[2022-09-08] MEDS: cefTRIAXone SOD 1 GM in D5W MINI-BAG PLUS 50 ML IV SCH (09:51)
[2022-09-08] MEDS ORDERED: MAG SULF 1GM/100ML (MAG RUN) 1 GM in IV 1 EA IV ONE (10:00)
[2022-09-08] MEDS: SODIUM BICARBONATE 150 MEQ in D5W 1,000 ML IV SCH (14:16)
[2022-09-08] MEDS: PANTOPRAZOLE 40MG VIAL IV SCH (17:17)
[2022-09-08] MEDS: CLOPIDOGREL 75 MG TAB NG SCH (20:21)
[2022-09-09] VITALS (12 sets, daily range): BP systolic 114–164; BP diastolic 52–72; O2SAT 98
[2022-09-09] MEDS ORDERED: SODIUM CHLORIDE 0.9% 1000ML IV PRN (00:15)
[2022-09-09] MEDS ORDERED: HEPARIN 1,000UNITS/ML 10ML VIAL (FOR RADIOLOGY & DIALYSIS ONLY) IV PRN (00:15)
[2022-09-09] MEDS ORDERED: HEPARIN 1,000UNITS/ML 10ML VIAL (FOR RADIOLOGY & DIALYSIS ONLY) XX SCH (00:15)
[2022-09-09] MEDS: INSULIN LISPRO (NovoLOG) PER UNIT SC SCH ×4 (00:33→18:12)
[2022-09-09 05:38] LABS: MAGNESIUM LEVEL 2.2 MG/DL (1.8-2.4); PHOSPHORUS LEVEL 5.9 MG/DL (2.4-5.1)
[2022-09-09 05:39] LABS: CALCIUM LEVEL 7.1 MG/DL (8.3-10.6); CREATININE FOR GFR 5.83 MG/DL (0.70-1.30); GLOMERULAR FILTRATION RATE 9.8 (>35); POTASSIUM SERUM 4.9 MMOL/L (3.5-5.1)
[2022-09-09 05:45] LABS: HEMOGLOBIN 7.5 g/dl (13.5-17.5); LYMPH # 0.7 10^3/uL (1.5-5.0); LYMPH % 3.1 % (24.0-44.0); MEAN CORPUSCULAR HGB CONC 35.9 g/dl (32.0-36.5); MEAN CORPUSCULAR VOLUME 92.1 fl (80.0-96.0); MONO % 9.5 % (2.0-8.0); NEUTROPHILS # 18.5 10^3/uL (1.5-8.5); NEUTROPHILS % 86.7 % (36.0-66.0); PLATELET COUNT, AUTOMATED 147 10^3/uL (150-450); RED BLOOD COUNT 2.27 10^6/uL (4.30-6.10); WHITE BLOOD COUNT 21.3 10^3/uL (4.0-10.0)
[2022-09-09 05:48] LABS: HEMATOCRIT 20.9 % (42.0-52.0)
[2022-09-09 06:10] LABS: ALBUMIN 2.1 G/DL (3.2-5.2); BILIRUBIN,TOTAL 0.8 MG/DL (0.3-1.2); CALCIUM LEVEL 7.1 MG/DL (8.3-10.6); CREATININE FOR GFR 5.77 MG/DL (0.70-1.30); POTASSIUM SERUM 4.9 MMOL/L (3.5-5.1); TOTAL PROTEIN 5.2 G/DL (5.7-8.2)
[2022-09-09] MEDS: SODIUM BICARBONATE 150 MEQ in D5W 1,000 ML IV SCH (06:13)
[2022-09-09] MEDS: IPRATROPIUM 0.5MG/ALBUTEROL 2.5MG INH SOL UD 3ML (DUONEB) NEB SCH (07:25)
[2022-09-09] MEDS: CLOPIDOGREL 75 MG TAB NG SCH (08:17)
[2022-09-09] MEDS: ASPIRIN 300 MG SUPP PR SCH (08:17)
[2022-09-09] MEDS: cefTRIAXone SOD 1 GM in D5W MINI-BAG PLUS 50 ML IV SCH (08:18)
[2022-09-09] MEDS ORDERED: IPRATROPIUM 0.5MG/ALBUTEROL 2.5MG INH SOL UD 3ML (DUONEB) NEB PRN (10:10)
[2022-09-09] MEDS ORDERED: PIPERACILLIN/TAZOBACTAM SOD 2.25 GM in D5W MINI-BAG PLUS 50 ML IV SCH (10:30)
[2022-09-09] MEDS: HYDROMORPHONE HCL 0.5 MG/ 0.5 ML SYRINGE IV PRN (11:19)
[2022-09-09] MEDS: ASPIRIN 81MG CHEW TABLET NG SCH (12:04)
[2022-09-09] MEDS: PIPERACILLIN/TAZOBACTAM SOD 4.5 GM in D5W MINI-BAG PLUS 50 ML IV SCH (12:05)
[2022-09-09] MEDS: DOXYCYCLINE HYCLATE 100 MG in D5W MINI-BAG PLUS 100 ML IV SCH (13:39)
[2022-09-09] MEDS: PANTOPRAZOLE 40MG VIAL IV SCH (18:12)
[2022-09-10] VITALS (17 sets, daily range): BP systolic 101–152; BP diastolic 52–80
[2022-09-10] MEDS: PIPERACILLIN/TAZOBACTAM SOD 4.5 GM in D5W MINI-BAG PLUS 50 ML IV SCH ×2 (00:09→11:10)
[2022-09-10] MEDS: INSULIN LISPRO (NovoLOG) PER UNIT SC SCH ×4 (00:10→20:18)
[2022-09-10] MEDS: DOXYCYCLINE HYCLATE 100 MG in D5W MINI-BAG PLUS 100 ML IV SCH ×2 (01:56→12:56)
[2022-09-10 04:40] LABS: BASO % 0.1 % (0.0-1.0); EOS # 0.6 10^3/uL (0.0-0.5); EOS % 3.6 % (0.0-3.0); HEMATOCRIT 22.2 % (42.0-52.0); HEMOGLOBIN 7.7 g/dl (13.5-17.5); LYMPH # 1.1 10^3/uL (1.5-5.0); LYMPH % 6.8 % (24.0-44.0); MEAN CORPUSCULAR HEMOGLOBIN 32.6 pg (27.0-33.0); MEAN CORPUSCULAR HGB CONC 34.7 g/dl (32.0-36.5); MEAN CORPUSCULAR VOLUME 94.1 fl (80.0-96.0); MONO # 1.3 10^3/uL (0.0-0.8); MONO % 7.8 % (2.0-8.0); NEUTROPHILS # 13.4 10^3/uL (1.5-8.5); RED BLOOD COUNT 2.36 10^6/uL (4.30-6.10); WHITE BLOOD COUNT 16.5 10^3/uL (4.0-10.0)
[2022-09-10 04:43] LABS: PLATELET COUNT, AUTOMATED 66 10^3/uL (150-450)
[2022-09-10 05:24] LABS: ALBUMIN 1.8 G/DL (3.2-5.2); BILIRUBIN,TOTAL 0.7 MG/DL (0.3-1.2); CALCIUM LEVEL 7.1 MG/DL (8.3-10.6); CREATININE FOR GFR 3.7 MG/DL (0.70-1.30); GLOMERULAR FILTRATION RATE 16.6 (>35); POTASSIUM SERUM 3.5 MMOL/L (3.5-5.1); TOTAL PROTEIN 4.8 G/DL (5.7-8.2)
[2022-09-10 06:03] LABS: FIBRINOGEN 409 MG/DL (268-480); INR 1.18; PARTIAL THROMBOPLASTIN TIME 28.8 SECONDS (24.8-34.2); PROTHROMBIN TIME 15.3 SECONDS (12.5-14.5)
[2022-09-10 06:42] LABS: D-DIMER QUANT > 4000.00 ng/ml (<500)
[2022-09-10] MEDS: ASPIRIN 81MG CHEW TABLET NG SCH (08:54)
[2022-09-10] MEDS: CLOPIDOGREL 75 MG TAB NG SCH (08:54)
[2022-09-10 14:08] LABS: ANCA-ATYPICAL <1:20 titer (Neg:<1:20); CYTOMEGALOVIRUS IgG ANTIBODY <0.60 U/mL (0.00-0.59); CYTOMEGALOVIRUS IgM ANTIBODY <30.0 AU/mL (0.0-29.9); CYTOPLASMIC NEUTROP AB ANCA-C <1:20 titer (Neg:<1:20); LIVER-KIDNEY MICROSOMAL ABY <20.1 Units (0.0-20.0); PERINUCLEAR AB ANCA-P <1:20 titer (Neg:<1:20)
[2022-09-10 16:09] LABS: E CHAFFEENSIS IgG TITER Negative (Neg:<1:64); E CHAFFEENSIS IgM TITER Negative (Neg:<1:20); HUMAN GRANULCYTIC EHRLIC IgG Negative (Neg:<1:64); HUMAN GRANULCYTIC EHRLIC IgM Negative (Neg:<1:20)
[2022-09-10] MEDS: PANTOPRAZOLE 40MG VIAL IV SCH (16:15)
[2022-09-10] MEDS: LEVEMIR (INSULIN DETEMIR) 1 UNITS/0.01ML SC SCH (20:18)
[2022-09-11] VITALS (11 sets, daily range): BP systolic 91–162; BP diastolic 52–79
[2022-09-11] MEDS: INSULIN LISPRO (NovoLOG) PER UNIT SC SCH ×4 (00:04→18:23)
[2022-09-11] MEDS: DOXYCYCLINE HYCLATE 100 MG in D5W MINI-BAG PLUS 100 ML IV SCH ×2 (01:03→12:57)
[2022-09-11 04:22] LABS: HEMATOCRIT 22.5 % (42.0-52.0); HEMOGLOBIN 7.9 g/dl (13.5-17.5); MEAN CORPUSCULAR HEMOGLOBIN 33.2 pg (27.0-33.0); MEAN CORPUSCULAR HGB CONC 35.1 g/dl (32.0-36.5); MEAN CORPUSCULAR VOLUME 94.5 fl (80.0-96.0); RED BLOOD COUNT 2.38 10^6/uL (4.30-6.10); WHITE BLOOD COUNT 17.1 10^3/uL (4.0-10.0)
[2022-09-11 04:38] LABS: PLATELET COUNT, AUTOMATED 87 10^3/uL (150-450)
[2022-09-11 04:59] LABS: ALBUMIN 1.5 G/DL (3.2-5.2); BILIRUBIN,TOTAL 0.7 MG/DL (0.3-1.2); CALCIUM LEVEL 6.9 MG/DL (8.3-10.6); CREATININE FOR GFR 4.82 MG/DL (0.70-1.30); GLOMERULAR FILTRATION RATE 12.3 (>35); POTASSIUM SERUM 3.6 MMOL/L (3.5-5.1); TOTAL PROTEIN 4.1 G/DL (5.7-8.2)
[2022-09-11] MEDS ORDERED: HEPARIN 1,000UNITS/ML 10ML VIAL (FOR RADIOLOGY & DIALYSIS ONLY) XX SCH (06:00)
[2022-09-11] MEDS ORDERED: SODIUM CHLORIDE 0.9% 1000ML IV PRN (06:00)
[2022-09-11] MEDS ORDERED: HEPARIN 1,000UNITS/ML 10ML VIAL (FOR RADIOLOGY & DIALYSIS ONLY) IV PRN (06:10)
[2022-09-11] MEDS: CLOPIDOGREL 75 MG TAB NG SCH (07:48)
[2022-09-11] MEDS: ASPIRIN 81MG CHEW TABLET NG SCH (07:48)
[2022-09-11] MEDS: PIPERACILLIN/TAZOBACTAM SOD 4.5 GM in D5W MINI-BAG PLUS 50 ML IV SCH ×3 (11:51)
[2022-09-11] MEDS ORDERED: RAMELTEON 8 MG TAB (ROZEREM) PO PRN (17:25)
[2022-09-11] MEDS: PANTOPRAZOLE 40MG VIAL IV SCH (17:50)
[2022-09-11] MEDS: LATANOPROST 0.005% OPHTH SOLN 2.5 ML OU SCH (21:52)
[2022-09-11] MEDS: LEVEMIR (INSULIN DETEMIR) 1 UNITS/0.01ML SC SCH (21:52)
[2022-09-12] VITALS (7 sets, daily range): BP systolic 100–129; BP diastolic 49–59
[2022-09-12] MEDS: INSULIN LISPRO (NovoLOG) PER UNIT SC SCH ×4 (01:21→18:17)
[2022-09-12] MEDS: PIPERACILLIN/TAZOBACTAM SOD 4.5 GM in D5W MINI-BAG PLUS 50 ML IV SCH ×2 (01:22→11:59)
[2022-09-12] MEDS: DOXYCYCLINE HYCLATE 100 MG in D5W MINI-BAG PLUS 100 ML IV SCH ×2 (01:22→13:16)
[2022-09-12] MEDS ORDERED: GLUCOSE 4GM CHEW TABLET NG PRN (07:15)
[2022-09-12] MEDS ORDERED: RAMELTEON 8 MG TAB (ROZEREM) NG PRN (07:15)
[2022-09-12] MEDS: ASPIRIN 81MG CHEW TABLET NG SCH (08:47)
[2022-09-12] MEDS: CLOPIDOGREL 75 MG TAB NG SCH (08:47)
[2022-09-12] MEDS ORDERED: DARBEPOETIN 200MCG/0.4ML *DIALYSIS* SYRINGE IV SCH (09:40)
[2022-09-12 13:14] LABS: HEMATOCRIT 21.8 % (42.0-52.0); HEMOGLOBIN 7.3 g/dl (13.5-17.5); MEAN CORPUSCULAR HEMOGLOBIN 32.4 pg (27.0-33.0); MEAN CORPUSCULAR HGB CONC 33.5 g/dl (32.0-36.5); MEAN CORPUSCULAR VOLUME 96.9 fl (80.0-96.0); RED BLOOD COUNT 2.25 10^6/uL (4.30-6.10); WHITE BLOOD COUNT 22.7 10^3/uL (4.0-10.0)
[2022-09-12 13:15] LABS: PLATELET COUNT, AUTOMATED 74 10^3/uL (150-450)
[2022-09-12 13:41] LABS: ALBUMIN 1.6 G/DL (3.2-5.2); BILIRUBIN,DIRECT 0.5 MG/DL (<0.4); BILIRUBIN,TOTAL 0.7 MG/DL (0.3-1.2); CALCIUM LEVEL 7.2 MG/DL (8.3-10.6); CREATININE FOR GFR 3.87 MG/DL (0.70-1.30); GLOMERULAR FILTRATION RATE 15.8 (>35); PHOSPHORUS LEVEL 3.1 MG/DL (2.4-5.1); POTASSIUM SERUM 3.3 MMOL/L (3.5-5.1); TOTAL PROTEIN 4.2 G/DL (5.7-8.2)
[2022-09-12] MEDS: PANTOPRAZOLE 40MG VIAL IV SCH (15:20)
[2022-09-12] MEDS ORDERED: KCL 10MEQ/100ML SWI (KRUN) 10 MEQ in IV 1 EA IV ONE (18:00)
[2022-09-12] MEDS: LEVEMIR (INSULIN DETEMIR) 1 UNITS/0.01ML SC SCH (21:01)
[2022-09-12] MEDS: LATANOPROST 0.005% OPHTH SOLN 2.5 ML OU SCH (21:01)
[2022-09-13] MEDS: PIPERACILLIN/TAZOBACTAM SOD 4.5 GM in D5W MINI-BAG PLUS 50 ML IV SCH ×2 (00:03→12:42)
[2022-09-13] MEDS: INSULIN LISPRO (NovoLOG) PER UNIT SC SCH ×5 (00:03→20:43)
[2022-09-13] MEDS: DOXYCYCLINE HYCLATE 100 MG in D5W MINI-BAG PLUS 100 ML IV SCH ×2 (01:40→13:55)
[2022-09-13 03:47] VITALS: BP 113/53
[2022-09-13] MEDS: ASPIRIN 81MG CHEW TABLET NG SCH (06:00)
[2022-09-13 07:27] VITALS: BP 130/59
[2022-09-13 08:28] LABS: HEMOGLOBIN 7.1 g/dl (13.5-17.5); MEAN CORPUSCULAR HEMOGLOBIN 33.3 pg (27.0-33.0); MEAN CORPUSCULAR HGB CONC 33.8 g/dl (32.0-36.5); MEAN CORPUSCULAR VOLUME 98.6 fl (80.0-96.0); RED BLOOD COUNT 2.13 10^6/uL (4.30-6.10); WHITE BLOOD COUNT 22.8 10^3/uL (4.0-10.0)
[2022-09-13] MEDS: CLOPIDOGREL 75 MG TAB NG SCH (08:35)
[2022-09-13 08:37] LABS: PLATELET COUNT, AUTOMATED 94 10^3/uL (150-450)
[2022-09-13 09:08] LABS: ALBUMIN 1.4 G/DL (3.2-5.2); BILIRUBIN,DIRECT 0.4 MG/DL (<0.4); BILIRUBIN,TOTAL 0.6 MG/DL (0.3-1.2); CALCIUM LEVEL 7.2 MG/DL (8.3-10.6); CREATININE FOR GFR 4.66 MG/DL (0.70-1.30); GLOMERULAR FILTRATION RATE 12.7 (>35); PERCENT SATURATION 17.7 % (19.7-50.0); PHOSPHORUS LEVEL 3.3 MG/DL (2.4-5.1); POTASSIUM SERUM 3.5 MMOL/L (3.5-5.1); TOTAL PROTEIN 4.1 G/DL (5.7-8.2)
[2022-09-13 09:10] LABS: FERRITIN 188.5 NG/ML (10.5-307.3)
[2022-09-13 12:00] VITALS: BP 141/71
[2022-09-13] MEDS ORDERED: ACETAMINOPHEN TAB 650MG DOSE (2X325MG) PO PRN (14:20)
[2022-09-13] MEDS: PANTOPRAZOLE 40MG VIAL IV SCH (15:13)
[2022-09-13 15:16] LABS: FOLATE 12.6 NG/ML (>5.4)
[2022-09-13 15:56] LABS: BASO % 0.1 % (0.0-1.0); EOS # 1.5 10^3/uL (0.0-0.5); EOS % 6.8 % (0.0-3.0); LYMPH # 1.4 10^3/uL (1.5-5.0); LYMPH % 6.1 % (24.0-44.0); MONO # 1.7 10^3/uL (0.0-0.8); MONO % 7.5 % (2.0-8.0); NEUTROPHILS # 17.2 10^3/uL (1.5-8.5)
[2022-09-13 16:30] VITALS: BP 131/62
[2022-09-13 20:00] VITALS: BP 132/59
[2022-09-13] MEDS: LATANOPROST 0.005% OPHTH SOLN 2.5 ML OU SCH (20:45)
[2022-09-13] MEDS: LEVEMIR (INSULIN DETEMIR) 1 UNITS/0.01ML SC SCH (20:45)
[2022-09-14] VITALS (10 sets, daily range): BP systolic 102–148; BP diastolic 54–65
[2022-09-14] MEDS: PIPERACILLIN/TAZOBACTAM SOD 4.5 GM in D5W MINI-BAG PLUS 50 ML IV SCH ×2 (00:32→15:17)
[2022-09-14] MEDS: DOXYCYCLINE HYCLATE 100 MG in D5W MINI-BAG PLUS 100 ML IV SCH ×2 (01:13→15:17)
[2022-09-14 05:57] LABS: BASO % 0.1 % (0.0-1.0); EOS % 5.4 % (0.0-3.0); LYMPH # 1.2 10^3/uL (1.5-5.0); LYMPH % 6.4 % (24.0-44.0); MEAN CORPUSCULAR HEMOGLOBIN 32.4 pg (27.0-33.0); MEAN CORPUSCULAR HGB CONC 33.2 g/dl (32.0-36.5); MEAN CORPUSCULAR VOLUME 97.5 fl (80.0-96.0); NEUTROPHILS % 78.8 % (36.0-66.0); PLATELET COUNT, AUTOMATED 101 10^3/uL (150-450); RED BLOOD COUNT 2.04 10^6/uL (4.30-6.10); WHITE BLOOD COUNT 19.1 10^3/uL (4.0-10.0)
[2022-09-14] MEDS ORDERED: SODIUM CHLORIDE 0.9% 1000ML IV PRN ×2 (06:00)
[2022-09-14] MEDS ORDERED: HEPARIN 1,000UNITS/ML 10ML VIAL (FOR RADIOLOGY & DIALYSIS ONLY) XX SCH ×2 (06:00)
[2022-09-14] MEDS ORDERED: HEPARIN 1,000UNITS/ML 10ML VIAL (FOR RADIOLOGY & DIALYSIS ONLY) IV PRN ×2 (06:00)
[2022-09-14 06:18] LABS: HEMATOCRIT 19.9 % (42.0-52.0); HEMOGLOBIN 6.6 g/dl (13.5-17.5)
[2022-09-14 06:19] LABS: MONO # 1.5 10^3/uL (0.0-0.8)
[2022-09-14 06:59] LABS: ALBUMIN 1.4 G/DL (3.2-5.2); BILIRUBIN,DIRECT 0.4 MG/DL (<0.4); BILIRUBIN,TOTAL 0.8 MG/DL (0.3-1.2); CALCIUM LEVEL 7.3 MG/DL (8.3-10.6); CREATININE FOR GFR 5.51 MG/DL (0.70-1.30); GLOMERULAR FILTRATION RATE 10.5 (>35); PHOSPHORUS LEVEL 4.6 MG/DL (2.4-5.1)
[2022-09-14] MEDS: INSULIN LISPRO (NovoLOG) PER UNIT SC SCH ×4 (07:30→21:00)
[2022-09-14] MEDS: ASPIRIN 81MG CHEW TABLET NG SCH (07:51)
[2022-09-14] MEDS: CLOPIDOGREL 75 MG TAB NG SCH (07:51)
[2022-09-14] MEDS ORDERED: HEPARIN 1,000UNITS/ML 10ML VIAL (FOR RADIOLOGY & DIALYSIS ONLY) As Ordered ONE (09:24)
[2022-09-14] MEDS ORDERED: fentaNYL 100 MCG/2 ML INJECTION As Ordered ONE (09:24)
[2022-09-14] MEDS ORDERED: MIDAZOLAM INJ 2MG/2ML VIAL As Ordered ONE (09:24)
[2022-09-14] MEDS ORDERED: LIDOCAINE W/EPINEPHRINE 1% 20ML VIAL As Ordered ONE (09:25)
[2022-09-14] MEDS ORDERED: LIDOCAINE 1% MDV 20ML VIAL As Ordered ONE (10:04)
[2022-09-14] MEDS: PANTOPRAZOLE 40MG VIAL IV SCH (15:17)
[2022-09-14] MEDS: LEVEMIR (INSULIN DETEMIR) 1 UNITS/0.01ML SC SCH (21:18)
[2022-09-14] MEDS: LATANOPROST 0.005% OPHTH SOLN 2.5 ML OU SCH (21:18)
[2022-09-15] MEDS: PIPERACILLIN/TAZOBACTAM SOD 4.5 GM in D5W MINI-BAG PLUS 50 ML IV SCH ×2 (00:50→12:31)
[2022-09-15] MEDS: DOXYCYCLINE HYCLATE 100 MG in D5W MINI-BAG PLUS 100 ML IV SCH (02:28)
[2022-09-15 03:07] LABS: DENGUE FEVER IgG AB 1.71 ISR (<1.65); DENGUE FEVER IgM AB 1.22 ISR (<1.65)
[2022-09-15 03:30] VITALS: BP 122/56
[2022-09-15] MEDS: INSULIN LISPRO (NovoLOG) PER UNIT SC SCH ×3 (07:30→17:58)
[2022-09-15 08:12] LABS: BASO % 0.1 % (0.0-1.0); EOS # 0.7 10^3/uL (0.0-0.5); EOS % 3.9 % (0.0-3.0); HEMATOCRIT 24.7 % (42.0-52.0); HEMOGLOBIN 8.3 g/dl (13.5-17.5); LYMPH # 1.7 10^3/uL (1.5-5.0); LYMPH % 9.3 % (24.0-44.0); MEAN CORPUSCULAR HGB CONC 33.6 g/dl (32.0-36.5); MEAN CORPUSCULAR VOLUME 95.4 fl (80.0-96.0); MONO % 10.5 % (2.0-8.0); NEUTROPHILS # 13.5 10^3/uL (1.5-8.5); NEUTROPHILS % 75.1 % (36.0-66.0); RED BLOOD COUNT 2.59 10^6/uL (4.30-6.10); WHITE BLOOD COUNT 17.9 10^3/uL (4.0-10.0)
[2022-09-15 08:16] VITALS: BP 126/59
[2022-09-15] MEDS: ASPIRIN 81MG CHEW TABLET NG SCH (08:36)
[2022-09-15] MEDS: CLOPIDOGREL 75 MG TAB NG SCH (08:36)
[2022-09-15 08:41] LABS: MONO # 1.9 10^3/uL (0.0-0.8); PLATELET COUNT, AUTOMATED 84 10^3/uL (150-450)
[2022-09-15 08:44] LABS: ALBUMIN 1.6 G/DL (3.2-5.2); BILIRUBIN,DIRECT 0.5 MG/DL (<0.4); BILIRUBIN,TOTAL 0.9 MG/DL (0.3-1.2); CALCIUM LEVEL 7.9 MG/DL (8.3-10.6); CREATININE FOR GFR 3.57 MG/DL (0.70-1.30); GLOMERULAR FILTRATION RATE 17.3 (>35); POTASSIUM SERUM 3.9 MMOL/L (3.5-5.1); TOTAL PROTEIN 4.4 G/DL (5.7-8.2)
[2022-09-15 11:52] VITALS: BP 152/73
[2022-09-15] MEDS ORDERED: FERRIC CARBOXYMALTOSE INJ 750 MG, VIAL MATE ADAPTER 1 EACH in NS 250 ML IV ONE (12:00)
[2022-09-15] MEDS: DOXYCYCLINE HYCLATE 100MG TABLET NG SCH ×2 (13:59→20:52)
[2022-09-15 15:37] VITALS: BP 147/77
[2022-09-15] MEDS: PANTOPRAZOLE 40MG VIAL IV SCH (16:51)
[2022-09-15 20:02] VITALS: BP 147/67
[2022-09-15] MEDS: LATANOPROST 0.005% OPHTH SOLN 2.5 ML OU SCH (20:52)
[2022-09-16] VITALS (10 sets, daily range): BP systolic 117–179; BP diastolic 61–70
[2022-09-16] MEDS: PIPERACILLIN/TAZOBACTAM SOD 4.5 GM in D5W MINI-BAG PLUS 50 ML IV SCH (00:13)
[2022-09-16] MEDS: ASPIRIN 81MG CHEW TABLET NG SCH (06:20)
[2022-09-16] MEDS: CLOPIDOGREL 75 MG TAB NG SCH (06:21)
[2022-09-16 06:26] LABS: BASO % 0.2 % (0.0-1.0); EOS # 0.6 10^3/uL (0.0-0.5); EOS % 4.4 % (0.0-3.0); HEMATOCRIT 23.8 % (42.0-52.0); HEMOGLOBIN 7.9 g/dl (13.5-17.5); LYMPH # 1.4 10^3/uL (1.5-5.0); LYMPH % 10.8 % (24.0-44.0); MEAN CORPUSCULAR HEMOGLOBIN 31.9 pg (27.0-33.0); MEAN CORPUSCULAR HGB CONC 33.2 g/dl (32.0-36.5); MONO # 1.5 10^3/uL (0.0-0.8); MONO % 11.6 % (2.0-8.0); NEUTROPHILS # 9.2 10^3/uL (1.5-8.5); NEUTROPHILS % 71.7 % (36.0-66.0); RED BLOOD COUNT 2.48 10^6/uL (4.30-6.10); WHITE BLOOD COUNT 12.8 10^3/uL (4.0-10.0)
[2022-09-16 06:31] LABS: PLATELET COUNT, AUTOMATED 97 10^3/uL (150-450)
[2022-09-16 07:04] LABS: ALBUMIN 1.7 G/DL (3.2-5.2); BILIRUBIN,DIRECT 0.4 MG/DL (<0.4); BILIRUBIN,TOTAL 0.7 MG/DL (0.3-1.2); CALCIUM LEVEL 8.2 MG/DL (8.3-10.6); CREATININE FOR GFR 4.6 MG/DL (0.70-1.30); GLOMERULAR FILTRATION RATE 12.9 (>35); PHOSPHORUS LEVEL 5.2 MG/DL (2.4-5.1); POTASSIUM SERUM 3.8 MMOL/L (3.5-5.1); TOTAL PROTEIN 4.6 G/DL (5.7-8.2)
[2022-09-16] MEDS: INSULIN LISPRO (NovoLOG) PER UNIT SC SCH ×3 (07:30→18:26)
[2022-09-16] MEDS ORDERED: HEPARIN 1,000UNITS/ML 10ML VIAL (FOR RADIOLOGY & DIALYSIS ONLY) IV PRN (08:20)
[2022-09-16] MEDS ORDERED: SODIUM CHLORIDE 0.9% 1000ML IV PRN (08:20)
[2022-09-16] MEDS ORDERED: HEPARIN 1,000UNITS/ML 10ML VIAL (FOR RADIOLOGY & DIALYSIS ONLY) XX SCH (08:20)
[2022-09-16] MEDS: PANTOPRAZOLE 40MG VIAL IV SCH (15:26)
[2022-09-16] MEDS ORDERED: GLUCAGON INJ 1MG VIAL SC PRN (18:25)
[2022-09-16] MEDS ORDERED: DEXTROSE 50% 50ML SYRINGE IV PRN (18:25)
[2022-09-16] MEDS ORDERED: GLUCOSE 4GM CHEW TABLET PO PRN (18:25)
[2022-09-16] MEDS: LATANOPROST 0.005% OPHTH SOLN 2.5 ML OU SCH (21:11)
[2022-09-17 00:05] VITALS: BP 123/59
[2022-09-17 04:24] VITALS: BP 130/62
[2022-09-17 06:53] LABS: BASO % 0.2 % (0.0-1.0); EOS # 0.4 10^3/uL (0.0-0.5); EOS % 2.7 % (0.0-3.0); HEMATOCRIT 26.2 % (42.0-52.0); HEMOGLOBIN 8.8 g/dl (13.5-17.5); LYMPH # 1.9 10^3/uL (1.5-5.0); LYMPH % 12.4 % (24.0-44.0); MEAN CORPUSCULAR HEMOGLOBIN 31.7 pg (27.0-33.0); MEAN CORPUSCULAR HGB CONC 33.6 g/dl (32.0-36.5); MEAN CORPUSCULAR VOLUME 94.2 fl (80.0-96.0); MONO % 12.1 % (2.0-8.0); NEUTROPHILS # 10.9 10^3/uL (1.5-8.5); NEUTROPHILS % 71.7 % (36.0-66.0); PLATELET COUNT, AUTOMATED 106 10^3/uL (150-450); RED BLOOD COUNT 2.78 10^6/uL (4.30-6.10); WHITE BLOOD COUNT 15.1 10^3/uL (4.0-10.0)
[2022-09-17 07:19] LABS: MONO # 1.8 10^3/uL (0.0-0.8)
[2022-09-17 07:22] LABS: ALBUMIN 1.5 G/DL (3.2-5.2); BILIRUBIN,DIRECT 0.4 MG/DL (<0.4); BILIRUBIN,TOTAL 0.6 MG/DL (0.3-1.2); CALCIUM LEVEL 8.2 MG/DL (8.3-10.6); CREATININE FOR GFR 3.15 MG/DL (0.70-1.30); POTASSIUM SERUM 3.7 MMOL/L (3.5-5.1); TOTAL PROTEIN 4.2 G/DL (5.7-8.2)
[2022-09-17] MEDS: INSULIN LISPRO (NovoLOG) PER UNIT SC SCH ×3 (07:30→16:52)
[2022-09-17 08:00] VITALS: BP 147/67
[2022-09-17] MEDS: CLOPIDOGREL 75 MG TAB NG SCH (09:05)
[2022-09-17] MEDS: ASPIRIN 81MG CHEW TABLET NG SCH (09:05)
[2022-09-17 12:00] VITALS: BP 142/63
[2022-09-17] MEDS: PANTOPRAZOLE 40MG VIAL IV SCH (16:13)
[2022-09-17 20:00] VITALS: BP 166/68
[2022-09-17] MEDS: LATANOPROST 0.005% OPHTH SOLN 2.5 ML OU SCH (20:16)
[2022-09-17 23:49] VITALS: BP 164/71
[2022-09-18] MEDS ORDERED: SODIUM CHLORIDE 0.9% 1000ML IV PRN (00:25)
[2022-09-18] MEDS ORDERED: HEPARIN 1,000UNITS/ML 10ML VIAL (FOR RADIOLOGY & DIALYSIS ONLY) IV PRN (00:25)
[2022-09-18] MEDS ORDERED: HEPARIN 1,000UNITS/ML 10ML VIAL (FOR RADIOLOGY & DIALYSIS ONLY) XX SCH (00:25)
[2022-09-18 00:45] VITALS: BP 138/54
[2022-09-18 04:00] VITALS: BP 132/60
[2022-09-18] MEDS: ASPIRIN 81MG CHEW TABLET NG SCH (06:07)
[2022-09-18] MEDS: INSULIN LISPRO (NovoLOG) PER UNIT SC SCH ×3 (07:27→18:11)
[2022-09-18 07:34] VITALS: BP 176/70
[2022-09-18 09:19] LABS: BASO % 0.3 % (0.0-1.0); EOS # 0.5 10^3/uL (0.0-0.5); EOS % 3.1 % (0.0-3.0); HEMATOCRIT 28.8 % (42.0-52.0); HEMOGLOBIN 9.5 g/dl (13.5-17.5); LYMPH # 1.4 10^3/uL (1.5-5.0); LYMPH % 9.5 % (24.0-44.0); MEAN CORPUSCULAR HEMOGLOBIN 31.9 pg (27.0-33.0); MEAN CORPUSCULAR VOLUME 96.6 fl (80.0-96.0); MONO # 1.4 10^3/uL (0.0-0.8); MONO % 9.7 % (2.0-8.0); NEUTROPHILS # 11.3 10^3/uL (1.5-8.5); NEUTROPHILS % 76.3 % (36.0-66.0); PLATELET COUNT, AUTOMATED 142 10^3/uL (150-450); RED BLOOD COUNT 2.98 10^6/uL (4.30-6.10); WHITE BLOOD COUNT 14.8 10^3/uL (4.0-10.0)
[2022-09-18 10:45] LABS: ALBUMIN 1.6 G/DL (3.2-5.2); BILIRUBIN,DIRECT 0.3 MG/DL (<0.4); BILIRUBIN,TOTAL 0.5 MG/DL (0.3-1.2); CALCIUM LEVEL 8.4 MG/DL (8.3-10.6); CREATININE FOR GFR 4.21 MG/DL (0.70-1.30); GLOMERULAR FILTRATION RATE 14.3 (>35); PHOSPHORUS LEVEL 4.4 MG/DL (2.4-5.1); POTASSIUM SERUM 3.7 MMOL/L (3.5-5.1); TOTAL PROTEIN 4.5 G/DL (5.7-8.2)
[2022-09-18 11:44] VITALS: BP 140/70
[2022-09-18] MEDS: CLOPIDOGREL 75 MG TAB NG SCH (11:49)
[2022-09-18] MEDS: PANTOPRAZOLE 40MG TAB (PROTONIX) PO SCH (11:49)
[2022-09-18] MEDS: FUROSEMIDE 40MG/4ML VIAL IV SCH ×2 (14:38→19:52)
[2022-09-18 15:03] VITALS: BP 163/65
[2022-09-18] MEDS: LATANOPROST 0.005% OPHTH SOLN 2.5 ML OU SCH (19:52)
[2022-09-18 20:52] VITALS: BP 161/89
[2022-09-19] MEDS: FUROSEMIDE 40MG/4ML VIAL IV SCH ×5 (01:26→20:41)
[2022-09-19 06:00] VITALS: BP 166/82
[2022-09-19 06:19] LABS: BASO # 0.1 10^3/uL (0.0-0.2); BASO % 0.3 % (0.0-1.0); EOS # 0.6 10^3/uL (0.0-0.5); EOS % 3.5 % (0.0-3.0); HEMATOCRIT 29.4 % (42.0-52.0); HEMOGLOBIN 9.6 g/dl (13.5-17.5); LYMPH # 1.9 10^3/uL (1.5-5.0); LYMPH % 11.1 % (24.0-44.0); MEAN CORPUSCULAR HEMOGLOBIN 31.9 pg (27.0-33.0); MEAN CORPUSCULAR HGB CONC 32.7 g/dl (32.0-36.5); MEAN CORPUSCULAR VOLUME 97.7 fl (80.0-96.0); MONO % 8.7 % (2.0-8.0); NEUTROPHILS % 75.2 % (36.0-66.0); PLATELET COUNT, AUTOMATED 103 10^3/uL (150-450); RED BLOOD COUNT 3.01 10^6/uL (4.30-6.10); WHITE BLOOD COUNT 17.3 10^3/uL (4.0-10.0)
[2022-09-19 06:46] LABS: ALBUMIN 1.6 G/DL (3.2-5.2); BILIRUBIN,DIRECT 0.3 MG/DL (<0.4); BILIRUBIN,TOTAL 0.6 MG/DL (0.3-1.2); CALCIUM LEVEL 8.6 MG/DL (8.3-10.6); CREATININE FOR GFR 3.35 MG/DL (0.70-1.30); GLOMERULAR FILTRATION RATE 18.6 (>35); PHOSPHORUS LEVEL 4.1 MG/DL (2.4-5.1); POTASSIUM SERUM 3.8 MMOL/L (3.5-5.1); TOTAL PROTEIN 4.5 G/DL (5.7-8.2)
[2022-09-19 06:47] LABS: MONO # 1.5 10^3/uL (0.0-0.8)
[2022-09-19] MEDS: INSULIN LISPRO (NovoLOG) PER UNIT SC SCH ×3 (07:30→18:00)
[2022-09-19] MEDS: CLOPIDOGREL 75 MG TAB NG SCH (08:37)
[2022-09-19] MEDS: PANTOPRAZOLE 40MG TAB (PROTONIX) PO SCH (08:38)
[2022-09-19] MEDS: ASPIRIN 81MG CHEW TABLET NG SCH (08:38)
[2022-09-19 14:00] VITALS: BP 159/74
[2022-09-19] MEDS: LATANOPROST 0.005% OPHTH SOLN 2.5 ML OU SCH (20:41)
[2022-09-19 21:38] VITALS: BP 164/71
[2022-09-19] MEDS ORDERED: FUROSEMIDE 40 MG TAB PO ONE (23:00)
[2022-09-20] MEDS: FUROSEMIDE 40MG/4ML VIAL IV SCH ×4 (01:19→20:47)
[2022-09-20 06:37] VITALS: BP 174/77
[2022-09-20 07:17] LABS: ALBUMIN 1.6 G/DL (3.2-5.2); BILIRUBIN,DIRECT 0.3 MG/DL (<0.4); BILIRUBIN,TOTAL 0.5 MG/DL (0.3-1.2); CALCIUM LEVEL 8.4 MG/DL (8.3-10.6); CREATININE FOR GFR 4.58 MG/DL (0.70-1.30); PHOSPHORUS LEVEL 5.5 MG/DL (2.4-5.1); POTASSIUM SERUM 4.3 MMOL/L (3.5-5.1); TOTAL PROTEIN 4.3 G/DL (5.7-8.2)
[2022-09-20] MEDS: INSULIN LISPRO (NovoLOG) PER UNIT SC SCH ×3 (07:30→17:06)
[2022-09-20] MEDS: ASPIRIN 81MG CHEW TABLET NG SCH (09:11)
[2022-09-20] MEDS: CLOPIDOGREL 75 MG TAB NG SCH (09:11)
[2022-09-20] MEDS: PANTOPRAZOLE 40MG TAB (PROTONIX) PO SCH (09:11)
[2022-09-20 13:07] LABS: HEPARIN INDUCED PLATELET ABY 0.091 OD (0.000-0.400); UNFRACTIONATED HEPARIN HI DOSE <1 % (0-20); UNFRACTIONATED HEPARIN LOW DOS <1 % (0-20)
[2022-09-20 14:00] VITALS: BP 139/64
[2022-09-20] MEDS: LATANOPROST 0.005% OPHTH SOLN 2.5 ML OU SCH (20:48)
[2022-09-20] MEDS: NYSTATIN 100,000 UNITS/GM TOPICAL PWD 15GM TOP SCH (21:00)
[2022-09-20 21:06] VITALS: BP 144/65
[2022-09-21] MEDS: FUROSEMIDE 40MG/4ML VIAL IV SCH (02:19)
[2022-09-21 05:23] VITALS: BP 155/62
[2022-09-21] MEDS: CLOPIDOGREL 75 MG TAB NG SCH (05:45)
[2022-09-21] MEDS: PANTOPRAZOLE 40MG TAB (PROTONIX) PO SCH (05:45)
[2022-09-21] MEDS: ASPIRIN 81MG CHEW TABLET NG SCH (05:45)
[2022-09-21 06:13] LABS: BASO # 0.1 10^3/uL (0.0-0.2); BASO % 0.4 % (0.0-1.0); EOS # 0.5 10^3/uL (0.0-0.5); EOS % 4.1 % (0.0-3.0); HEMATOCRIT 30.6 % (42.0-52.0); HEMOGLOBIN 9.8 g/dl (13.5-17.5); LYMPH # 1.2 10^3/uL (1.5-5.0); LYMPH % 9.5 % (24.0-44.0); MEAN CORPUSCULAR HEMOGLOBIN 31.7 pg (27.0-33.0); MONO # 1.1 10^3/uL (0.0-0.8); MONO % 8.9 % (2.0-8.0); NEUTROPHILS # 9.2 10^3/uL (1.5-8.5); NEUTROPHILS % 76.2 % (36.0-66.0); PLATELET COUNT, AUTOMATED 141 10^3/uL (150-450); RED BLOOD COUNT 3.09 10^6/uL (4.30-6.10); WHITE BLOOD COUNT 12.1 10^3/uL (4.0-10.0)
[2022-09-21 06:35] LABS: ALBUMIN 1.8 G/DL (3.2-5.2); BILIRUBIN,DIRECT 0.3 MG/DL (<0.4); BILIRUBIN,TOTAL 0.6 MG/DL (0.3-1.2); CALCIUM LEVEL 8.2 MG/DL (8.3-10.6); CREATININE FOR GFR 5.25 MG/DL (0.70-1.30); GLOMERULAR FILTRATION RATE 11.1 (>35); PHOSPHORUS LEVEL 5.7 MG/DL (2.4-5.1); POTASSIUM SERUM 4.4 MMOL/L (3.5-5.1); TOTAL PROTEIN 4.4 G/DL (5.7-8.2)
[2022-09-21] MEDS ORDERED: DARBEPOETIN 100MCG/0.5ML *DIALYSIS* SYRINGE IV SCH (07:00)
[2022-09-21] MEDS ORDERED: SODIUM CHLORIDE 0.9% 1000ML IV PRN (07:00)
[2022-09-21] MEDS ORDERED: HEPARIN 1,000UNITS/ML 10ML VIAL (FOR RADIOLOGY & DIALYSIS ONLY) XX SCH (07:00)
[2022-09-21] MEDS ORDERED: HEPARIN 1,000UNITS/ML 10ML VIAL (FOR RADIOLOGY & DIALYSIS ONLY) IV PRN (07:00)
[2022-09-21] MEDS: INSULIN LISPRO (NovoLOG) PER UNIT SC SCH (07:30)
[2022-09-21 07:45] VITALS: BP 170/78
[2022-09-21] MEDS: NYSTATIN 100,000 UNITS/GM TOPICAL PWD 15GM TOP SCH (09:00)
[2022-09-21] MEDS ORDERED: NYST10006 TOP (10:27)
[2022-09-21] MEDS ORDERED: ALLO100T PO (10:27)
[2022-09-21] MEDS ORDERED: AMLO10TA PO (10:27)
[2022-09-21] MEDS ORDERED: ASPI81CH8 NG (10:27)
[2022-09-21] MEDS ORDERED: ATOR40TA75 PO (10:27)
[2022-09-21] MEDS ORDERED: DARB100SYR IV (10:27)
[2022-09-21] MEDS ORDERED: RENV2TAB PO (10:27)
[2022-09-21] MEDS ORDERED: ASPI81CH8 PO (10:30)
== END 2022-09-21 11:15 | DRG 673 ==
LOC: M ED 11:42 → M ED INP 15:25 → ENRESERV 16:51 → M ICU 17:06 → M PCU 09-11 15:50 → M MS5PR 09-18 14:54
PROVIDERS: ADMIT Internal Medicine; ATTEND Internal Medicine
PROC: 0TJB8ZZ Inspection of Bladder, Via Natural or Artificial Opening Endoscopic (ICD-10-PCS; 2022-09-04)
PROC: 02HV33Z Insertion of Infusion Device into Superior Vena Cava, Percutaneous Approach (ICD-10-PCS; 2022-09-05)
PROC: 30233N1 Transfusion of Nonautologous Red Blood Cells into Peripheral Vein, Percutaneous Approach (ICD-10-PCS; 2022-09-06)
PROC: 5A1D70Z Performance of Urinary Filtration, Intermittent, Less than 6 Hours Per Day (ICD-10-PCS; 2022-09-07)
PROC: B246ZZZ Ultrasonography of Right and Left Heart (ICD-10-PCS; 2022-09-07)
PROC: 0JH63XZ Insertion of Tunneled Vascular Access Device into Chest Subcutaneous Tissue and Fascia, Percutaneous Approach (ICD-10-PCS; principal; 2022-09-14 09:30)
DX: N17.0 Acute kidney failure with tubular necrosis (principal); K72.00 Acute and subacute hepatic failure without coma; G93.41 Metabolic encephalopathy; G92.9 Unspecified toxic encephalopathy; E43 Unspecified severe protein-calorie malnutrition; I21.A1 Myocardial infarction type 2; E87.20 Acidosis, unspecified; M62.82 Rhabdomyolysis; E87.1 Hypo-osmolality and hyponatremia; I12.0 Hypertensive chronic kidney disease with stage 5 chronic kidney disease or end stage renal disease; D62 Acute posthemorrhagic anemia; J90 Pleural effusion, not elsewhere classified; J81.1 Chronic pulmonary edema; N40.0 Benign prostatic hyperplasia without lower urinary tract symptoms; D63.1 Anemia in chronic kidney disease; N18.6 End stage renal disease; M48.00 Spinal stenosis, site unspecified; M10.9 Gout, unspecified; I25.10 Atherosclerotic heart disease of native coronary artery without angina pectoris; E78.5 Hyperlipidemia, unspecified; E11.22 Type 2 diabetes mellitus with diabetic chronic kidney disease; E87.5 Hyperkalemia; I25.2 Old myocardial infarction; R33.9 Retention of urine, unspecified; R31.9 Hematuria, unspecified; I95.9 Hypotension, unspecified; E86.0 Dehydration; R79.89 Other specified abnormal findings of blood chemistry; I45.4 Nonspecific intraventricular block; R94.5 Abnormal results of liver function studies; K80.20 Calculus of gallbladder without cholecystitis without obstruction; K21.9 Gastro-esophageal reflux disease without esophagitis; M19.90 Unspecified osteoarthritis, unspecified site; R13.10 Dysphagia, unspecified; K76.82 Hepatic encephalopathy; D69.6 Thrombocytopenia, unspecified; Z95.5 Presence of coronary angioplasty implant and graft; Z79.899 Other long term (current) drug therapy; Z87.891 Personal history of nicotine dependence; Z79.02 Long term (current) use of antithrombotics/antiplatelets; Z20.822 Contact with and (suspected) exposure to COVID-19

== ENCOUNTER 2022-09-21 11:54 | Inpatient (IN) | payer MEDICARE, BC, OTHER ==
[~2022-09-21] VITALS: Ht 162.6 cm; Wt 65.9 kg
[~2022-09-21 11:54] MED LIST changes: +ALLO100T PO; +AMLO10TA PO; +AMLO1TAB24 PO; +ASPI81CH8 NG; +ASPI81CH8 PO; +ATOR40TA75 PO; +ATOR80TA59 PO; +AZILSARTAN MEDOXOMIL PO; +CLOP75TA2 PO; +DARB100SYR IV; +MAGN50TA PO; +NYST10006 TOP; +RENV2TAB PO; +TORS10TA3 PO; +TRAV04OPD OU; +VELT1POW3 PO; +amLODIPine 5 MG TAB PO SCH
[2022-09-21 12:30] VITALS: BP 159/74
[2022-09-21] MEDS: COMBIVENT RESPIMAT 100-20MCG INHALER 4GM INH SCH ×2 (14:00→20:32)
[2022-09-21] MEDS ORDERED: DEXTROSE 50% 50ML SYRINGE IV PRN (14:10)
[2022-09-21] MEDS ORDERED: ACETAMINOPHEN TAB 650MG DOSE (2X325MG) PO PRN (14:10)
[2022-09-21] MEDS ORDERED: GLUCOSE 4GM CHEW TABLET PO PRN (14:10)
[2022-09-21] MEDS ORDERED: GLUCAGON INJ 1MG VIAL SC PRN (14:10)
[2022-09-21] MEDS ORDERED: BISACODYL 10MG SUPP PR PRN (14:10)
[2022-09-21] MEDS: DOCUSATE SODIUM 100MG CAPSULE PO SCH ×3 (14:27→20:38)
[2022-09-21] MEDS ORDERED: HOME MED LIST COMPLETE! XX SCH (14:30)
[2022-09-21] MEDS: REMEDY PHYTOPLEX Z-GUARD PASTE 113GM TUBE (FROM STOREROOM PRODUCT) TOP SCH ×2 (16:00→21:31)
[2022-09-21] MEDS: (RENVELA) SEVELAMER **CARBONate** 800 MG TAB PO SCH (17:14)
[2022-09-21] MEDS: SUCRALFATE 1 GM TAB PO SCH (17:15)
[2022-09-21] MEDS: INSULIN LISPRO (NovoLOG) PER UNIT SC SCH (17:16)
[2022-09-21 20:00] VITALS: BP 148/68
[2022-09-21] MEDS: ATORVASTATIN 20 MG TAB PO SCH (20:28)
[2022-09-21] MEDS: SENNA 8.6 MG TAB (SENOKOT) PO SCH ×2 (20:28→20:38)
[2022-09-22 06:00] VITALS: BP 157/69
[2022-09-22 06:58] LABS: BASO # 0.1 10^3/uL (0.0-0.2); BASO % 0.6 % (0.0-1.0); EOS # 0.6 10^3/uL (0.0-0.5); EOS % 4.4 % (0.0-3.0); HEMATOCRIT 34.8 % (42.0-52.0); HEMOGLOBIN 11.4 g/dl (13.5-17.5); LYMPH # 1.8 10^3/uL (1.5-5.0); LYMPH % 13.7 % (24.0-44.0); MEAN CORPUSCULAR HEMOGLOBIN 32.7 pg (27.0-33.0); MEAN CORPUSCULAR HGB CONC 32.8 g/dl (32.0-36.5); MEAN CORPUSCULAR VOLUME 99.7 fl (80.0-96.0); MONO # 1.2 10^3/uL (0.0-0.8); MONO % 9.2 % (2.0-8.0); NEUTROPHILS # 9.1 10^3/uL (1.5-8.5); NEUTROPHILS % 70.8 % (36.0-66.0); PLATELET COUNT, AUTOMATED 111 10^3/uL (150-450); RED BLOOD COUNT 3.49 10^6/uL (4.30-6.10); WHITE BLOOD COUNT 12.9 10^3/uL (4.0-10.0)
[2022-09-22 07:24] LABS: BILIRUBIN,TOTAL 0.7 MG/DL (0.3-1.2); CALCIUM LEVEL 8.7 MG/DL (8.3-10.6); CREATININE FOR GFR 3.83 MG/DL (0.70-1.30); POTASSIUM SERUM 4.4 MMOL/L (3.5-5.1); TOTAL PROTEIN 5.1 G/DL (5.7-8.2)
[2022-09-22] MEDS: INSULIN LISPRO (NovoLOG) PER UNIT SC SCH (07:25)
[2022-09-22] MEDS: COMBIVENT RESPIMAT 100-20MCG INHALER 4GM INH SCH ×3 (07:30→20:16)
[2022-09-22] MEDS: REMEDY PHYTOPLEX Z-GUARD PASTE 113GM TUBE (FROM STOREROOM PRODUCT) TOP SCH ×3 (09:00→19:57)
[2022-09-22] MEDS: DOCUSATE SODIUM 100MG CAPSULE PO SCH ×2 (09:00→19:56)
[2022-09-22] MEDS: CLOPIDOGREL 75 MG TAB PO SCH (09:03)
[2022-09-22] MEDS: SUCRALFATE 1 GM TAB PO SCH ×3 (09:03→17:34)
[2022-09-22] MEDS: (RENVELA) SEVELAMER **CARBONate** 800 MG TAB PO SCH ×3 (09:03→17:34)
[2022-09-22] MEDS: PANTOPRAZOLE 40MG TAB (PROTONIX) PO SCH (09:03)
[2022-09-22] MEDS: ASPIRIN 81MG ENTERIC TABLET PO SCH (09:04)
[2022-09-22] MEDS ORDERED: CEFDINIR 300 MG CAP (OMNICEF) PO SCH (09:15)
[2022-09-22] MEDS: AMOXICILLIN 250 MG CAP PO SCH ×2 (12:20→19:57)
[2022-09-22] MEDS: LACTOBACILLUS ACIDOPHILUS CAP (BACID) PO SCH ×2 (12:20→17:34)
[2022-09-22 14:00] VITALS: BP 158/68
[2022-09-22 14:15] VITALS: BP 137/81
[2022-09-22] MEDS: SENNA 8.6 MG TAB (SENOKOT) PO SCH (19:56)
[2022-09-22] MEDS: ATORVASTATIN 20 MG TAB PO SCH (19:57)
[2022-09-22 20:00] VITALS: BP 142/71
[2022-09-23 06:07] VITALS: BP 143/67
[2022-09-23] MEDS: COMBIVENT RESPIMAT 100-20MCG INHALER 4GM INH SCH ×2 (07:17→20:18)
[2022-09-23] MEDS: LACTOBACILLUS ACIDOPHILUS CAP (BACID) PO SCH ×2 (07:32→17:00)
[2022-09-23] MEDS: (RENVELA) SEVELAMER **CARBONate** 800 MG TAB PO SCH ×3 (07:32→17:00)
[2022-09-23] MEDS: ASPIRIN 81MG ENTERIC TABLET PO SCH (07:32)
[2022-09-23] MEDS: SUCRALFATE 1 GM TAB PO SCH ×3 (07:32→17:00)
[2022-09-23] MEDS: CLOPIDOGREL 75 MG TAB PO SCH (07:32)
[2022-09-23] MEDS: AMOXICILLIN 250 MG CAP PO SCH (07:32)
[2022-09-23] MEDS: PANTOPRAZOLE 40MG TAB (PROTONIX) PO SCH (07:32)
[2022-09-23] MEDS: DOCUSATE SODIUM 100MG CAPSULE PO SCH ×2 (07:33→19:17)
[2022-09-23] MEDS: REMEDY PHYTOPLEX Z-GUARD PASTE 113GM TUBE (FROM STOREROOM PRODUCT) TOP SCH ×3 (07:34→19:17)
[2022-09-23] MEDS ORDERED: HEPARIN 1,000UNITS/ML 10ML VIAL (FOR RADIOLOGY & DIALYSIS ONLY) IV PRN (07:35)
[2022-09-23] MEDS ORDERED: HEPARIN 1,000UNITS/ML 10ML VIAL (FOR RADIOLOGY & DIALYSIS ONLY) XX SCH (07:35)
[2022-09-23] MEDS ORDERED: SODIUM CHLORIDE 0.9% 1000ML IV PRN (07:35)
[2022-09-23 16:30] VITALS: BP 160/82
[2022-09-23] MEDS: SENNA 8.6 MG TAB (SENOKOT) PO SCH (19:17)
[2022-09-23 20:00] VITALS: BP 151/66
[2022-09-23] MEDS: ATORVASTATIN 20 MG TAB PO SCH (20:34)
[2022-09-24 06:00] VITALS: BP 133/60
[2022-09-24 07:01] LABS: BASO # 0.1 10^3/uL (0.0-0.2); BASO % 0.5 % (0.0-1.0); EOS # 0.4 10^3/uL (0.0-0.5); EOS % 4.1 % (0.0-3.0); HEMATOCRIT 29.6 % (42.0-52.0); HEMOGLOBIN 9.3 g/dl (13.5-17.5); LYMPH # 1.3 10^3/uL (1.5-5.0); LYMPH % 14.3 % (24.0-44.0); MEAN CORPUSCULAR HEMOGLOBIN 32.5 pg (27.0-33.0); MEAN CORPUSCULAR HGB CONC 31.4 g/dl (32.0-36.5); MEAN CORPUSCULAR VOLUME 103.5 fl (80.0-96.0); MONO # 1.3 10^3/uL (0.0-0.8); NEUTROPHILS # 6.1 10^3/uL (1.5-8.5); NEUTROPHILS % 66.2 % (36.0-66.0); RED BLOOD COUNT 2.86 10^6/uL (4.30-6.10); WHITE BLOOD COUNT 9.2 10^3/uL (4.0-10.0)
[2022-09-24 07:03] LABS: PLATELET COUNT, AUTOMATED 79 10^3/uL (150-450)
[2022-09-24] MEDS: COMBIVENT RESPIMAT 100-20MCG INHALER 4GM INH SCH ×3 (07:11→19:58)
[2022-09-24 07:29] LABS: CALCIUM LEVEL 8.6 MG/DL (8.3-10.6); CREATININE FOR GFR 3.21 MG/DL (0.70-1.30); GLOMERULAR FILTRATION RATE 19.6 (>35); POTASSIUM SERUM 4.6 MMOL/L (3.5-5.1)
[2022-09-24] MEDS: DOCUSATE SODIUM 100MG CAPSULE PO SCH ×2 (08:28→19:29)
[2022-09-24] MEDS: SUCRALFATE 1 GM TAB PO SCH ×3 (08:28→17:52)
[2022-09-24] MEDS: PANTOPRAZOLE 40MG TAB (PROTONIX) PO SCH (08:28)
[2022-09-24] MEDS: CLOPIDOGREL 75 MG TAB PO SCH (08:28)
[2022-09-24] MEDS: ASPIRIN 81MG ENTERIC TABLET PO SCH (08:28)
[2022-09-24] MEDS: LACTOBACILLUS ACIDOPHILUS CAP (BACID) PO SCH ×2 (08:28→17:52)
[2022-09-24] MEDS: (RENVELA) SEVELAMER **CARBONate** 800 MG TAB PO SCH ×3 (08:28→17:52)
[2022-09-24] MEDS: REMEDY PHYTOPLEX Z-GUARD PASTE 113GM TUBE (FROM STOREROOM PRODUCT) TOP SCH ×3 (08:29→19:29)
[2022-09-24 14:00] VITALS: BP 158/70
[2022-09-24] MEDS: SENNA 8.6 MG TAB (SENOKOT) PO SCH (19:29)
[2022-09-24 19:33] VITALS: BP 155/67
[2022-09-24] MEDS: ATORVASTATIN 20 MG TAB PO SCH (20:01)
[2022-09-25 05:48] VITALS: BP 129/60
[2022-09-25] MEDS ORDERED: HEPARIN 1,000UNITS/ML 10ML VIAL (FOR RADIOLOGY & DIALYSIS ONLY) IV PRN (06:00)
[2022-09-25] MEDS ORDERED: HEPARIN 1,000UNITS/ML 10ML VIAL (FOR RADIOLOGY & DIALYSIS ONLY) XX SCH (06:00)
[2022-09-25] MEDS ORDERED: SODIUM CHLORIDE 0.9% 1000ML IV PRN (06:00)
[2022-09-25] MEDS: COMBIVENT RESPIMAT 100-20MCG INHALER 4GM INH SCH ×3 (07:15→20:00)
[2022-09-25] MEDS: SUCRALFATE 1 GM TAB PO SCH ×3 (07:30→17:54)
[2022-09-25] MEDS: (RENVELA) SEVELAMER **CARBONate** 800 MG TAB PO SCH ×3 (08:00→17:54)
[2022-09-25] MEDS: LACTOBACILLUS ACIDOPHILUS CAP (BACID) PO SCH ×2 (08:00→17:54)
[2022-09-25] MEDS: REMEDY PHYTOPLEX Z-GUARD PASTE 113GM TUBE (FROM STOREROOM PRODUCT) TOP SCH ×3 (09:00→21:00)
[2022-09-25] MEDS: DOCUSATE SODIUM 100MG CAPSULE PO SCH ×2 (09:00→21:00)
[2022-09-25 12:11] VITALS: BP 122/74
[2022-09-25] MEDS: CLOPIDOGREL 75 MG TAB PO SCH (12:45)
[2022-09-25] MEDS: PANTOPRAZOLE 40MG TAB (PROTONIX) PO SCH (12:45)
[2022-09-25] MEDS: ASPIRIN 81MG ENTERIC TABLET PO SCH (12:46)
[2022-09-25] MEDS: amLODIPine 5 MG TAB PO SCH (12:46)
[2022-09-25 14:00] VITALS: BP 124/64
[2022-09-25 20:00] VITALS: BP 142/63
[2022-09-25] MEDS: ATORVASTATIN 20 MG TAB PO SCH (20:47)
[2022-09-25] MEDS: SENNA 8.6 MG TAB (SENOKOT) PO SCH (21:00)
[2022-09-26 06:00] VITALS: BP 143/65
[2022-09-26] MEDS: COMBIVENT RESPIMAT 100-20MCG INHALER 4GM INH SCH ×3 (07:28→19:56)
[2022-09-26] MEDS: REMEDY PHYTOPLEX Z-GUARD PASTE 113GM TUBE (FROM STOREROOM PRODUCT) TOP SCH ×3 (09:00→19:28)
[2022-09-26] MEDS: DOCUSATE SODIUM 100MG CAPSULE PO SCH ×2 (09:00→19:28)
[2022-09-26] MEDS: CLOPIDOGREL 75 MG TAB PO SCH (09:13)
[2022-09-26] MEDS: ASPIRIN 81MG ENTERIC TABLET PO SCH (09:13)
[2022-09-26] MEDS: LACTOBACILLUS ACIDOPHILUS CAP (BACID) PO SCH ×2 (09:13→17:38)
[2022-09-26] MEDS: amLODIPine 5 MG TAB PO SCH (09:13)
[2022-09-26] MEDS: PANTOPRAZOLE 40MG TAB (PROTONIX) PO SCH (09:13)
[2022-09-26] MEDS: (RENVELA) SEVELAMER **CARBONate** 800 MG TAB PO SCH ×3 (09:13→17:38)
[2022-09-26] MEDS: SUCRALFATE 1 GM TAB PO SCH ×3 (09:13→17:38)
[2022-09-26 14:00] VITALS: BP 124/68
[2022-09-26] MEDS: SENNA 8.6 MG TAB (SENOKOT) PO SCH (19:28)
[2022-09-26 20:00] VITALS: BP 159/71
[2022-09-26] MEDS: ATORVASTATIN 20 MG TAB PO SCH (20:08)
[2022-09-27 06:00] VITALS: BP 157/68
[2022-09-27] MEDS ORDERED: HEPARIN 1,000UNITS/ML 10ML VIAL (FOR RADIOLOGY & DIALYSIS ONLY) XX SCH (06:00)
[2022-09-27] MEDS ORDERED: HEPARIN 1,000UNITS/ML 10ML VIAL (FOR RADIOLOGY & DIALYSIS ONLY) IV PRN (06:00)
[2022-09-27] MEDS ORDERED: SODIUM CHLORIDE 0.9% 1000ML IV PRN (06:00)
[2022-09-27] MEDS: COMBIVENT RESPIMAT 100-20MCG INHALER 4GM INH SCH ×3 (06:54→20:08)
[2022-09-27 07:00] LABS: BASO % 0.3 % (0.0-1.0); EOS # 0.4 10^3/uL (0.0-0.5); EOS % 4.4 % (0.0-3.0); HEMATOCRIT 27.9 % (42.0-52.0); HEMOGLOBIN 9.2 g/dl (13.5-17.5); LYMPH # 1.1 10^3/uL (1.5-5.0); LYMPH % 12.3 % (24.0-44.0); MEAN CORPUSCULAR HEMOGLOBIN 32.9 pg (27.0-33.0); MEAN CORPUSCULAR VOLUME 99.6 fl (80.0-96.0); MONO # 1.2 10^3/uL (0.0-0.8); MONO % 13.6 % (2.0-8.0); NEUTROPHILS % 68.7 % (36.0-66.0); PLATELET COUNT, AUTOMATED 143 10^3/uL (150-450); WHITE BLOOD COUNT 8.8 10^3/uL (4.0-10.0)
[2022-09-27] MEDS: CLOPIDOGREL 75 MG TAB PO SCH (07:25)
[2022-09-27] MEDS: LACTOBACILLUS ACIDOPHILUS CAP (BACID) PO SCH ×2 (07:25→17:06)
[2022-09-27] MEDS: ASPIRIN 81MG ENTERIC TABLET PO SCH (07:25)
[2022-09-27] MEDS: SUCRALFATE 1 GM TAB PO SCH ×3 (07:26→17:06)
[2022-09-27] MEDS: PANTOPRAZOLE 40MG TAB (PROTONIX) PO SCH (07:26)
[2022-09-27] MEDS: (RENVELA) SEVELAMER **CARBONate** 800 MG TAB PO SCH ×3 (07:26→17:06)
[2022-09-27] MEDS: amLODIPine 5 MG TAB PO SCH (07:26)
[2022-09-27 07:32] LABS: CALCIUM LEVEL 8.5 MG/DL (8.3-10.6); CREATININE FOR GFR 4.3 MG/DL (0.70-1.30); POTASSIUM SERUM 3.8 MMOL/L (3.5-5.1)
[2022-09-27] MEDS ORDERED: ALTEPLASE 2MG/2ML VIAL XX ONE (14:00)
[2022-09-27 19:30] VITALS: BP 160/71
[2022-09-27] MEDS: ATORVASTATIN 20 MG TAB PO SCH (19:54)
[2022-09-27 20:00] VITALS: BP 154/61
[2022-09-28 06:00] VITALS: BP 160/62
[2022-09-28] MEDS: COMBIVENT RESPIMAT 100-20MCG INHALER 4GM INH SCH (06:54)
[2022-09-28 08:33] VITALS: BP 160/62
[2022-09-28] MEDS: SUCRALFATE 1 GM TAB PO SCH ×2 (08:33→12:33)
[2022-09-28] MEDS: amLODIPine 5 MG TAB PO SCH (08:33)
[2022-09-28] MEDS: ASPIRIN 81MG ENTERIC TABLET PO SCH (08:33)
[2022-09-28] MEDS: PANTOPRAZOLE 40MG TAB (PROTONIX) PO SCH (08:33)
[2022-09-28] MEDS: CLOPIDOGREL 75 MG TAB PO SCH (08:33)
[2022-09-28] MEDS: (RENVELA) SEVELAMER **CARBONate** 800 MG TAB PO SCH ×2 (08:33→12:33)
[2022-09-28] MEDS: LACTOBACILLUS ACIDOPHILUS CAP (BACID) PO SCH (08:33)
[2022-09-28] MEDS ORDERED: SUCR1TA PO (09:27)
[2022-09-28] MEDS ORDERED: ASPI81CH8 PO (09:27)
[2022-09-28] MEDS ORDERED: ATOR40TA75 PO (09:27)
[2022-09-28] MEDS ORDERED: CLOP75TA2 PO (09:27)
[2022-09-28] MEDS ORDERED: AMLO1TAB24 PO (09:27)
[2022-09-28] MEDS ORDERED: RENV2TAB PO (09:27)
[2022-09-28] MEDS ORDERED: PANT40TA29 PO (09:27)
[2022-10-02 00:07] LABS: DENGUE FEVER IgG AB 1.32 ISR (<1.65); DENGUE FEVER IgM AB 1.05 ISR (<1.65); WEST NILE VIRUS ANTIBODY IgG Negative (Negative); WEST NILE VIRUS ANTIBODY IgM Negative (Negative)
== END 2022-09-28 13:10 | disposition home or self-care (01) | DRG 71 ==
LOC: M PM&R 12:10
PROVIDERS: ADMIT Physical Medicine & Rehabilitation; ATTEND Physical Medicine & Rehabilitation
PROC: 5A1D70Z Performance of Urinary Filtration, Intermittent, Less than 6 Hours Per Day (ICD-10-PCS; principal; 2022-09-21)
DX: G93.41 Metabolic encephalopathy (principal); N17.9 Acute kidney failure, unspecified; N18.4 Chronic kidney disease, stage 4 (severe); R26.89 Other abnormalities of gait and mobility; D69.6 Thrombocytopenia, unspecified; D63.1 Anemia in chronic kidney disease; D72.829 Elevated white blood cell count, unspecified; E87.70 Fluid overload, unspecified; I12.9 Hypertensive chronic kidney disease with stage 1 through stage 4 chronic kidney disease, or unspecified chronic kidney disease; I25.10 Atherosclerotic heart disease of native coronary artery without angina pectoris; E78.5 Hyperlipidemia, unspecified; E11.22 Type 2 diabetes mellitus with diabetic chronic kidney disease; M48.061 Spinal stenosis, lumbar region without neurogenic claudication; E87.5 Hyperkalemia; H40.9 Unspecified glaucoma; Z74.09 Other reduced mobility; Z74.1 Need for assistance with personal care; R53.1 Weakness; K21.9 Gastro-esophageal reflux disease without esophagitis; M10.9 Gout, unspecified; Z85.820 Personal history of malignant melanoma of skin; Z95.5 Presence of coronary angioplasty implant and graft; Z87.891 Personal history of nicotine dependence; Z99.2 Dependence on renal dialysis; Z79.82 Long term (current) use of aspirin; Z79.02 Long term (current) use of antithrombotics/antiplatelets; Z79.899 Other long term (current) drug therapy

== ENCOUNTER → 2022-10-22 | Outpatient (REF) | payer MEDICARE, OTHER ==
[~2022-10-22] MED LIST changes: +PANT40TA29 PO; +SUCR1TA PO; -amLODIPine 5 MG TAB PO SCH
[2022-10-22 18:13] LABS: FOLATE 7.6 NG/ML (>5.4)
[2022-10-22 18:14] LABS: ALBUMIN 3.5 G/DL (3.2-5.2); BILIRUBIN,TOTAL 0.7 MG/DL (0.3-1.2); CALCIUM LEVEL 9.1 MG/DL (8.3-10.6); CREATININE FOR GFR 2.18 MG/DL (0.70-1.30); GLOMERULAR FILTRATION RATE 30.6 (>35); POTASSIUM SERUM 4.1 MMOL/L (3.5-5.1); TOTAL PROTEIN 7.4 G/DL (5.7-8.2)
[2022-10-22 18:15] LABS: ALBUMIN 3.5 G/DL (3.2-5.2); CREATININE FOR GFR 2.15 MG/DL (0.70-1.30); GLOMERULAR FILTRATION RATE 31.1 (>35); MAGNESIUM LEVEL 1.4 MG/DL (1.8-2.4); PHOSPHORUS LEVEL 3.5 MG/DL (2.4-5.1); POTASSIUM SERUM 4.2 MMOL/L (3.5-5.1)
[2022-10-22 18:16] LABS: THYROXINE (T4) 11.7 UG/DL (4.5-10.9)
[2022-10-22 18:17] LABS: FREE THYROXINE INDEX 3.9 % (1.4-3.8); T UPTAKE 33.6 % (22.5-37.0); THYROID STIMULATING HORMONE 0.642 uIU/ML (0.55-4.78)
== END ==
LOC: M SFHCCLAY 10:25
PROVIDERS: ATTEND Family Medicine
DX: I10 Essential (primary) hypertension (principal); Z12.5 Encounter for screening for malignant neoplasm of prostate

== ENCOUNTER → 2022-11-23 | Outpatient (CLI) | payer MEDICARE, BC, OTHER ==
[~2022-11-23] MED LIST changes: +LIDOCAINE W/EPINEPHRINE 1% 20ML VIAL As Ordered ONE
[2022-11-23 08:10] VITALS: TEMP 97.2
[2022-11-23 09:10] VITALS: BP 159/68; O2SAT 98
== END ==
LOC: M IRPRO 08:01
PROVIDERS: ATTEND Surgery Vascular Surgery
DX: N18.9 Chronic kidney disease, unspecified (principal)

== ENCOUNTER → 2023-01-21 | Outpatient (REF) | payer MEDICARE, OTHER ==
[~2023-01-21] MED LIST changes: -LIDOCAINE W/EPINEPHRINE 1% 20ML VIAL As Ordered ONE
[2023-01-21 17:43] LABS: ALBUMIN 3.7 G/DL (3.2-5.2); ALKALINE PHOSPHATASE 207 U/L (46-116); ALT/SGPT 38 U/L (7.0-40); AST/SGOT 50 U/L (<34); BILIRUBIN,TOTAL 0.5 MG/DL (0.3-1.2); BLOOD UREA NITROGEN 56 MG/DL (9-23); CALCIUM LEVEL 9.7 MG/DL (8.3-10.6); CARBON DIOXIDE LEVEL 27 MMOL/L (20-31); CHLORIDE LEVEL 104 MMOL/L (98-107); CPK CREATINE PHOSPHOKINASE 219 U/L (46-171); CREATININE FOR GFR 1.79 MG/DL (0.70-1.30); GLOMERULAR FILTRATION RATE 38.4 (>35); GLUCOSE, FASTING 113 MG/DL (74-106); POTASSIUM SERUM 4.2 MMOL/L (3.5-5.1); SODIUM LEVEL 140 MMOL/L (136-145); TOTAL PROTEIN 6.8 G/DL (5.7-8.2)
[2023-01-21 17:44] LABS: BASO % 0.4 % (0.0-1.0); EOS # 0.2 10^3/uL (0.0-0.5); EOS % 2.4 % (0.0-3.0); HEMATOCRIT 26.8 % (42.0-52.0); HEMOGLOBIN 8.8 g/dl (13.5-17.5); LYMPH # 1.1 10^3/uL (1.5-5.0); LYMPH % 13.9 % (24.0-44.0); MEAN CORPUSCULAR HEMOGLOBIN 31.2 pg (27.0-33.0); MEAN CORPUSCULAR HGB CONC 32.8 g/dl (32.0-36.5); MONO # 0.6 10^3/uL (0.0-0.8); MONO % 8.1 % (2.0-8.0); NEUTROPHILS # 5.9 10^3/uL (1.5-8.5); NEUTROPHILS % 74.8 % (36.0-66.0); PLATELET COUNT, AUTOMATED 288 10^3/uL (150-450); RED BLOOD COUNT 2.82 10^6/uL (4.30-6.10); WHITE BLOOD COUNT 7.9 10^3/uL (4.0-10.0)
[2023-01-21 17:45] LABS: PTH INTACT 66.1 PG/ML (18.5-88.0)
[2023-01-21 17:46] LABS: THYROID STIMULATING HORMONE 1.022 uIU/ML (0.55-4.78)
[2023-01-21 17:47] LABS: FERRITIN 865.7 NG/ML (10.5-307.3); FREE T4 0.79 NG/DL (0.89-1.76)
[2023-01-21 17:48] LABS: THYROID PEROXIDASE ANTIBODY < 28.0 U/ML (<60.0)
[2023-01-21 18:03] LABS: HEMOGLOBIN A1c 6.2 % (4.0-6.0)
== END ==
LOC: M SFHCCLAY 09:57
PROVIDERS: ATTEND Family Medicine
DX: I12.9 Hypertensive chronic kidney disease with stage 1 through stage 4 chronic kidney disease, or unspecified chronic kidney disease (principal); N18.32 Chronic kidney disease, stage 3b; R73.01 Impaired fasting glucose

== ENCOUNTER → 2023-03-22 | Outpatient (CLI) | payer MEDICARE, BC, OTHER | LOC: M RAD 11:24 | PROVIDERS: ATTEND Family Medicine | DX: K80.10 Calculus of gallbladder with chronic cholecystitis without obstruction (principal) ==

== ENCOUNTER → 2023-03-24 | Outpatient (REF) | payer MEDICARE, OTHER ==
[2023-03-24 18:47] LABS: PERCENT SATURATION 17.4 % (19.7-50.0)
[2023-03-24 18:50] LABS: FERRITIN 637.5 NG/ML (10.5-307.3)
== END ==
LOC: M LAB REF 17:36
PROVIDERS: ATTEND Internal Medicine Nephrology
DX: D50.9 Iron deficiency anemia, unspecified (principal)

== ENCOUNTER → 2023-04-26 | Outpatient (CLI) | payer MEDICARE, BC, OTHER | LOC: M CARPUL 08:00 | PROVIDERS: ATTEND Family Medicine | DX: I25.10 Atherosclerotic heart disease of native coronary artery without angina pectoris (principal) ==

== ENCOUNTER → 2023-05-17 | Outpatient (CLI) | payer MEDICARE, BC, OTHER ==
[2023-05-17 11:34] LABS: BASO % 0.5 % (0.0-1.0); EOS # 0.2 10^3/uL (0.0-0.5); EOS % 1.7 % (0.0-3.0); HEMATOCRIT 34.3 % (42.0-52.0); HEMATOCRIT 34.5 % (42.0-52.0); HEMOGLOBIN 11.3 g/dl (13.5-17.5); LYMPH # 1.4 10^3/uL (1.5-5.0); LYMPH % 15.7 % (24.0-44.0); MEAN CORPUSCULAR HEMOGLOBIN 32.6 pg (27.0-33.0); MEAN CORPUSCULAR HGB CONC 32.8 g/dl (32.0-36.5); MEAN CORPUSCULAR VOLUME 99.4 fl (80.0-96.0); MONO # 0.7 10^3/uL (0.0-0.8); MONO % 8.2 % (2.0-8.0); NEUTROPHILS # 6.3 10^3/uL (1.5-8.5); NEUTROPHILS % 73.7 % (36.0-66.0); PLATELET COUNT, AUTOMATED 258 10^3/uL (150-450); RED BLOOD COUNT 3.47 10^6/uL (4.30-6.10); WHITE BLOOD COUNT 8.6 10^3/uL (4.0-10.0)
[2023-05-17 11:47] LABS: INR 1.12; PROTHROMBIN TIME 14.1 SECONDS (12.5-14.5)
[2023-05-17 12:00] LABS: ALBUMIN 4.1 G/DL (3.2-5.2); BILIRUBIN,TOTAL 0.4 MG/DL (0.3-1.2); CALCIUM LEVEL 9.8 MG/DL (8.3-10.6); CREATININE FOR GFR 1.71 MG/DL (0.70-1.30); GLOMERULAR FILTRATION RATE 40.4 (>35); PERCENT SATURATION 25.3 % (19.7-50.0); PTH INTACT 70.3 PG/ML (18.5-88.0); TOTAL PROTEIN 7.3 G/DL (5.7-8.2)
[2023-05-17 12:02] LABS: TOTAL 25(OH) VITAMIN D 57.3 NG/ML (20.0-100.0)
[2023-05-18 18:08] LABS: IMMUNOTYPING SERUM IGA SO 301 mg/dL (61-437); IMMUNOTYPING SERUM IGM SO 103 mg/dL (15-143)
== END ==
LOC: M LAB 10:31 → M PLALAB 10:31
PROVIDERS: ATTEND Family Medicine
DX: K80.10 Calculus of gallbladder with chronic cholecystitis without obstruction (principal); E55.9 Vitamin D deficiency, unspecified; D63.1 Anemia in chronic kidney disease; N18.32 Chronic kidney disease, stage 3b; I12.9 Hypertensive chronic kidney disease with stage 1 through stage 4 chronic kidney disease, or unspecified chronic kidney disease; E78.2 Mixed hyperlipidemia; I25.10 Atherosclerotic heart disease of native coronary artery without angina pectoris; I70.1 Atherosclerosis of renal artery; I35.9 Nonrheumatic aortic valve disorder, unspecified; K21.9 Gastro-esophageal reflux disease without esophagitis; M48.061 Spinal stenosis, lumbar region without neurogenic claudication; Z79.82 Long term (current) use of aspirin; Z79.899 Other long term (current) drug therapy; Z79.01 Long term (current) use of anticoagulants

== ENCOUNTER → 2023-06-24 | Outpatient (REF) | payer MEDICARE, BC, OTHER ==
[2023-06-24 19:09] LABS: PERCENT SATURATION 17.7 % (19.7-50.0)
[2023-06-24 19:11] LABS: FERRITIN 600.1 NG/ML (10.5-307.3)
== END ==
LOC: M LAB REF 17:39
PROVIDERS: ATTEND Internal Medicine Nephrology
DX: D50.9 Iron deficiency anemia, unspecified (principal)

== ENCOUNTER → 2023-09-21 | Outpatient (REF) | payer MEDICARE, BC ==
[2023-09-21 12:33] LABS: BASO % 0.4 % (0.0-1.0); EOS # 1.2 10^3/uL (0.0-0.5); EOS % 10.4 % (0.0-3.0); HEMATOCRIT 31.5 % (42.0-52.0); HEMOGLOBIN 10.2 g/dl (13.5-17.5); LYMPH # 1.1 10^3/uL (1.5-5.0); LYMPH % 10.1 % (24.0-44.0); MEAN CORPUSCULAR HEMOGLOBIN 32.5 pg (27.0-33.0); MEAN CORPUSCULAR HGB CONC 32.4 g/dl (32.0-36.5); MEAN CORPUSCULAR VOLUME 100.3 fl (80.0-96.0); MONO # 1.2 10^3/uL (0.0-0.8); MONO % 10.4 % (2.0-8.0); NEUTROPHILS # 7.6 10^3/uL (1.5-8.5); NEUTROPHILS % 68.3 % (36.0-66.0); PLATELET COUNT, AUTOMATED 329 10^3/uL (150-450); RED BLOOD COUNT 3.14 10^6/uL (4.30-6.10)
[2023-09-21 12:40] LABS: INR 1.17; PARTIAL THROMBOPLASTIN TIME 29.5 SECONDS (24.8-34.2); PROTHROMBIN TIME 14.6 SECONDS (12.5-14.5)
[2023-09-21 13:03] LABS: URIC ACID 5.9 MG/DL (3.7-9.2)
[2023-09-21 13:06] LABS: ALBUMIN 3.6 G/DL (3.2-5.2); BILIRUBIN,TOTAL 0.6 MG/DL (0.3-1.2); CALCIUM LEVEL 10.2 MG/DL (8.3-10.6); CREATININE FOR GFR 1.87 MG/DL (0.70-1.30); GLOMERULAR FILTRATION RATE 36.5 (>35); POTASSIUM SERUM 4.2 MMOL/L (3.5-5.1); TOTAL PROTEIN 7.1 G/DL (5.7-8.2)
[2023-09-21 13:19] LABS: FERRITIN 729.3 NG/ML (10.5-307.3)
== END ==
LOC: M SFHCPLAZ 07:57
PROVIDERS: ATTEND Family Medicine
DX: E66.3 Overweight (principal); K76.0 Fatty (change of) liver, not elsewhere classified; D63.1 Anemia in chronic kidney disease; M1A.9XX1 Chronic gout, unspecified, with tophus (tophi); N18.32 Chronic kidney disease, stage 3b; I50.32 Chronic diastolic (congestive) heart failure

== ENCOUNTER → 2023-11-10 | Outpatient (REF) | payer MEDICARE, BC ==
[2023-11-10 12:25] LABS: ALBUMIN 3.7 G/DL (3.2-5.2); BILIRUBIN,TOTAL 0.3 MG/DL (0.3-1.2); CALCIUM LEVEL 9.2 MG/DL (8.3-10.6); TOTAL PROTEIN 6.6 G/DL (5.7-8.2)
[2023-11-11 12:32] LABS: CREATININE FOR GFR 1.7 MG/DL (0.70-1.30); GLOMERULAR FILTRATION RATE 40.7 (>35)
== END ==
LOC: M SFHCCLAY 08:11
PROVIDERS: ATTEND Family Medicine
DX: I50.32 Chronic diastolic (congestive) heart failure (principal); D50.9 Iron deficiency anemia, unspecified

== ENCOUNTER → 2023-11-11 | Outpatient (REF) | payer MEDICARE, BC ==
[2023-11-11 13:07] LABS: BASO % 0.4 % (0.0-1.0); EOS # 0.4 10^3/uL (0.0-0.5); EOS % 4.7 % (0.0-3.0); HEMATOCRIT 30.6 % (42.0-52.0); LYMPH # 1.5 10^3/uL (1.5-5.0); LYMPH % 18.2 % (24.0-44.0); MEAN CORPUSCULAR HEMOGLOBIN 32.6 pg (27.0-33.0); MEAN CORPUSCULAR HGB CONC 32.7 g/dl (32.0-36.5); MEAN CORPUSCULAR VOLUME 99.7 fl (80.0-96.0); MONO # 0.7 10^3/uL (0.0-0.8); MONO % 9.2 % (2.0-8.0); NEUTROPHILS # 5.4 10^3/uL (1.5-8.5); NEUTROPHILS % 67.3 % (36.0-66.0); PLATELET COUNT, AUTOMATED 278 10^3/uL (150-450); RED BLOOD COUNT 3.07 10^6/uL (4.30-6.10)
[2023-11-11 13:28] LABS: ALBUMIN 3.5 G/DL (3.2-5.2); BILIRUBIN,TOTAL 0.4 MG/DL (0.3-1.2); CALCIUM LEVEL 9.5 MG/DL (8.3-10.6); CREATININE FOR GFR 1.6 MG/DL (0.70-1.30); GLOMERULAR FILTRATION RATE 43.6 (>35); PERCENT SATURATION 25.8 % (19.7-50.0); POTASSIUM SERUM 4.9 MMOL/L (3.5-5.1); TOTAL PROTEIN 6.5 G/DL (5.7-8.2)
[2023-11-11 13:29] LABS: PTH INTACT 85.5 PG/ML (18.5-88.0)
[2023-11-11 13:30] LABS: FERRITIN 515.3 NG/ML (10.5-307.3)
== END ==
LOC: M SFHCPLAZ 08:17
PROVIDERS: ATTEND Family Medicine
DX: I50.32 Chronic diastolic (congestive) heart failure (principal); D50.9 Iron deficiency anemia, unspecified; E55.9 Vitamin D deficiency, unspecified; D63.1 Anemia in chronic kidney disease; K74.00 Hepatic fibrosis, unspecified

== ENCOUNTER → 2023-11-21 | Outpatient (REF) | payer MEDICARE, BC | LOC: M SFHCPLAZ 13:41 | PROVIDERS: ATTEND Family Medicine | DX: N18.32 Chronic kidney disease, stage 3b (principal); D63.1 Anemia in chronic kidney disease; D50.9 Iron deficiency anemia, unspecified; E78.2 Mixed hyperlipidemia ==

== ENCOUNTER 2023-12-07 09:40 | Outpatient (CLI) | payer MEDICARE, BC ==
[~2023-12-07] VITALS: Ht 162.6 cm; Wt 50.0 kg
[~2023-12-07 09:40] MED LIST changes: +ALBUTEROL SULFATE 2.5MG/0.5ML INH NEB SOLN INH PRN; +EPINEPHrine INJ 1 MG/ML 1ML AMP IM PRN; +diphenhydrAMINE 50MG/ML VIAL IV PRN; +methylPREDNISolone 125MG 2ML VIAL IV PRN
[2023-12-07 09:55] VITALS: BP 171/74; O2SAT 100
[2023-12-07] MEDS ORDERED: NS 1,000 ML IV SCH (10:00)
[2023-12-07] MEDS: IRON SUCROSE 400 MG in NS 250 ML OVER 2.5 HRS IV ONE (10:51)
[2023-12-07 12:00] VITALS: BP 180/77; O2SAT 100
[2023-12-07 13:00] VITALS: BP 160/50; O2SAT 99
[2023-12-07 13:25] VITALS: BP 190/80; O2SAT 98
== END 2023-12-07 13:30 ==
LOC: M INFU 09:40
PROVIDERS: ATTEND Internal Medicine Nephrology
DX: D50.9 Iron deficiency anemia, unspecified (principal)
CPT/HCPCS: 96365; 96366; J1756

== ENCOUNTER → 2023-12-15 | Outpatient (REF) | payer MEDICARE, BC ==
[~2023-12-15] MED LIST changes: -ALBUTEROL SULFATE 2.5MG/0.5ML INH NEB SOLN INH PRN; -EPINEPHrine INJ 1 MG/ML 1ML AMP IM PRN; -diphenhydrAMINE 50MG/ML VIAL IV PRN; -methylPREDNISolone 125MG 2ML VIAL IV PRN
[2023-12-15 12:08] LABS: BASO % 0.4 % (0.0-1.0); EOS # 0.3 10^3/uL (0.0-0.5); EOS % 4.2 % (0.0-3.0); HEMATOCRIT 31.9 % (42.0-52.0); HEMOGLOBIN 10.3 g/dl (13.5-17.5); LYMPH # 1.2 10^3/uL (1.5-5.0); LYMPH % 14.9 % (24.0-44.0); MEAN CORPUSCULAR HEMOGLOBIN 32.3 pg (27.0-33.0); MEAN CORPUSCULAR HGB CONC 32.3 g/dl (32.0-36.5); MONO # 0.8 10^3/uL (0.0-0.8); MONO % 9.3 % (2.0-8.0); NEUTROPHILS # 5.7 10^3/uL (1.5-8.5); NEUTROPHILS % 70.8 % (36.0-66.0); PLATELET COUNT, AUTOMATED 286 10^3/uL (150-450); RED BLOOD COUNT 3.19 10^6/uL (4.30-6.10)
[2023-12-15 12:39] LABS: FERRITIN 693.1 NG/ML (10.5-307.3); FREE T4 0.77 NG/DL (0.89-1.76); THYROID STIMULATING HORMONE 2.44 uIU/ML (0.55-4.78)
[2023-12-15 12:42] LABS: ALBUMIN 3.8 G/DL (3.2-5.2); BILIRUBIN,TOTAL 0.3 MG/DL (0.3-1.2); CALCIUM LEVEL 9.6 MG/DL (8.3-10.6); CREATININE FOR GFR 1.83 MG/DL (0.70-1.30); GLOMERULAR FILTRATION RATE 37.4 (>35); PERCENT SATURATION 30.5 % (19.7-50.0); POTASSIUM SERUM 4.7 MMOL/L (3.5-5.1); TOTAL PROTEIN 6.7 G/DL (5.7-8.2)
== END ==
LOC: M SFHCPLAZ 07:28
PROVIDERS: ATTEND Family Medicine
DX: N18.32 Chronic kidney disease, stage 3b (principal); D63.1 Anemia in chronic kidney disease; D50.9 Iron deficiency anemia, unspecified; E78.2 Mixed hyperlipidemia; I50.32 Chronic diastolic (congestive) heart failure

== ENCOUNTER → 2023-12-20 | Outpatient (REF) | payer MEDICARE, BC | LOC: M SFHCPLAZ 15:38 | PROVIDERS: ATTEND Family Medicine | DX: N18.32 Chronic kidney disease, stage 3b (principal); D63.1 Anemia in chronic kidney disease; D50.9 Iron deficiency anemia, unspecified; K74.00 Hepatic fibrosis, unspecified; E78.2 Mixed hyperlipidemia; Z53.9 Procedure and treatment not carried out, unspecified reason ==

== ENCOUNTER → 2024-04-23 | Outpatient (REF) | payer MEDICARE, BC | LOC: M SFHCPLAZ 07:35 | PROVIDERS: ATTEND Family Medicine | DX: Z53.9 Procedure and treatment not carried out, unspecified reason (principal) ==

== ENCOUNTER → 2024-04-24 | Outpatient (CLI) | payer MEDICARE, BC ==
[2024-04-24 09:53] LABS: BASO % 0.2 % (0.0-1.0); EOS # 0.2 10^3/uL (0.0-0.5); EOS % 2.4 % (0.0-3.0); HEMATOCRIT 31.2 % (42.0-52.0); HEMOGLOBIN 10.2 g/dl (13.5-17.5); LYMPH % 12.8 % (24.0-44.0); MEAN CORPUSCULAR HGB CONC 32.7 g/dl (32.0-36.5); MEAN CORPUSCULAR VOLUME 97.8 fl (80.0-96.0); MONO # 0.6 10^3/uL (0.0-0.8); MONO % 7.3 % (2.0-8.0); NEUTROPHILS # 6.2 10^3/uL (1.5-8.5); NEUTROPHILS % 77.1 % (36.0-66.0); PLATELET COUNT, AUTOMATED 241 10^3/uL (150-450); RED BLOOD COUNT 3.19 10^6/uL (4.30-6.10)
[2024-04-24 10:17] LABS: ALBUMIN 3.9 G/DL (3.2-5.2); BILIRUBIN,TOTAL 0.5 MG/DL (0.3-1.2); CALCIUM LEVEL 9.9 MG/DL (8.3-10.6); CREATININE FOR GFR 1.77 MG/DL (0.70-1.30); GLOMERULAR FILTRATION RATE 38.8 (>35); PERCENT SATURATION 27.5 % (19.7-50.0); TOTAL PROTEIN 6.9 G/DL (5.7-8.2)
[2024-04-24 10:36] LABS: FERRITIN 479.7 NG/ML (10.5-307.3)
== END ==
LOC: M LAB 09:02
PROVIDERS: ATTEND Family Medicine
DX: K74.00 Hepatic fibrosis, unspecified (principal); D63.1 Anemia in chronic kidney disease; N18.32 Chronic kidney disease, stage 3b; D50.9 Iron deficiency anemia, unspecified; I50.32 Chronic diastolic (congestive) heart failure

== ENCOUNTER → 2024-07-11 | Outpatient (CLI) | payer MEDICARE, BC ==
[2024-07-11 08:50] LABS: BASO % 0.4 % (0.0-1.0); EOS # 0.3 10^3/uL (0.0-0.5); EOS % 3.8 % (0.0-3.0); HEMATOCRIT 33.5 % (42.0-52.0); LYMPH # 1.3 10^3/uL (1.5-5.0); LYMPH % 17.9 % (24.0-44.0); MEAN CORPUSCULAR HEMOGLOBIN 32.4 pg (27.0-33.0); MEAN CORPUSCULAR HGB CONC 32.8 g/dl (32.0-36.5); MEAN CORPUSCULAR VOLUME 98.5 fl (80.0-96.0); MONO # 0.6 10^3/uL (0.0-0.8); MONO % 8.7 % (2.0-8.0); NEUTROPHILS # 4.8 10^3/uL (1.5-8.5); NEUTROPHILS % 68.9 % (36.0-66.0); PLATELET COUNT, AUTOMATED 245 10^3/uL (150-450)
[2024-07-11 09:08] LABS: INR 1.03; PARTIAL THROMBOPLASTIN TIME 27.7 SECONDS (24.8-34.2); PROTHROMBIN TIME 13.8 SECONDS (12.5-14.5)
[2024-07-11 09:30] LABS: URIC ACID 6.7 MG/DL (3.7-9.2)
[2024-07-11 09:33] LABS: ALBUMIN 3.8 G/DL (3.2-5.2); BILIRUBIN,TOTAL 0.4 MG/DL (0.3-1.2); CALCIUM LEVEL 9.8 MG/DL (8.3-10.6); CHOLESTEROL RISK RATIO 3.79 (<5); CREATININE FOR GFR 1.79 MG/DL (0.70-1.30); FREE T4 0.9 NG/DL (0.89-1.76); GLOMERULAR FILTRATION RATE 38.3 (>35); HDL CHOLESTEROL 36.4 MG/DL (>40); LDL CHOLESTEROL 80.8 MG/DL (<100); NON-HDL-C 101.6 MG/DL; PERCENT SATURATION 24.8 % (19.7-50.0); POTASSIUM SERUM 4.6 MMOL/L (3.5-5.1); TOTAL PROTEIN 7.1 G/DL (5.7-8.2)
[2024-07-11 09:34] LABS: THYROID STIMULATING HORMONE 1.67 uIU/ML (0.55-4.78)
== END ==
LOC: M LAB 08:04
PROVIDERS: ATTEND Family Medicine
DX: N18.32 Chronic kidney disease, stage 3b (principal); D63.1 Anemia in chronic kidney disease; D50.9 Iron deficiency anemia, unspecified; I50.32 Chronic diastolic (congestive) heart failure; E78.2 Mixed hyperlipidemia; M1A.9XX1 Chronic gout, unspecified, with tophus (tophi); K74.00 Hepatic fibrosis, unspecified

== ENCOUNTER → 2025-01-16 | Outpatient (REF) | payer MEDICARE, BC ==
[~2025-01-16] MED LIST changes: +AMLO-751 PO; -AMLO10TA PO
[2025-01-16 12:43] LABS: BASO # 0.0 10^3/uL (0.0-0.2); BASO % 0.3 % (0.0-1.0); EOS # 0.4 10^3/uL (0.0-0.5); EOS % 4.1 % (0.0-3.0); IRON (FE) 70.0 UG/DL (65-175); LYMPH # 1.5 10^3/uL (1.5-5.0); LYMPH % 17.5 % (24.0-44.0); MONO # 0.7 10^3/uL (0.0-0.8); MONO % 7.6 % (2.0-8.0); NEUTROPHILS # 6.0 10^3/uL (1.5-8.5); NEUTROPHILS % 70.3 % (36.0-66.0); PERCENT SATURATION 25.4 % (19.7-50.0); PLATELET COUNT, AUTOMATED 343 10^3/uL (150-450); TOTAL 25(OH) VITAMIN D 46.3 NG/ML (20.0-100.0)
[2025-01-16 12:47] LABS: ALT/SGPT 22.0 U/L (7.0-40); AST/SGOT 21.0 U/L (<34); CALCIUM LEVEL 9.1 MG/DL (8.3-10.6); CARBON DIOXIDE LEVEL 27.0 MMOL/L (20-31); CHLORIDE LEVEL 108.0 MMOL/L (98-107); CREATININE FOR GFR 1.51 MG/DL (0.70-1.30); GLOMERULAR FILTRATION RATE 43.9 (>35); POTASSIUM SERUM 4.7 MMOL/L (3.5-5.1); PTH INTACT 103.2 PG/ML (18.5-88.0); SODIUM LEVEL 144.0 MMOL/L (136-145)
[2025-01-16 13:24] LABS: ESTIMATED AVERAGE GLUCOSE 131.0 MG/DL (60-110)
[2025-01-17 16:14] LABS: BERMUDA GRASS IGE 20.40 kU/L (<0.10); BIRCH IGE 0.87 kU/L (<0.10); COMMON RAGWEED SHORT IGE 3.05 kU/L (<0.10); D001 IGE D PTERONYSSINUS 0.11 kU/L (<0.10); D002-IGE D FARINAE 0.21 kU/L (<0.10); E001-IGE CAT DANDER < 0.10 kU/L (<0.10); E005-IGE DOG DANDER < 0.10 kU/L (<0.10); ELM IGE 2.14 kU/L (<0.10); I006 IGE COCKROACH 1.95 kU/L (<0.10); IMMUNOGLOBULIN E FOR ALLERGENS 172 kU/L (<OR=114); M006 IGE ALTERNIA ALTERNATA 0.21 kU/L (<0.10); M1-PENICILLIUM NOTATUM < 0.10 kU/L (<0.10); MOUSE URINE IGE < 0.10 kU/L (<0.10); MUGWORT IGE 0.66 kU/L (<0.10); OAK IGE 11.40 kU/L (<0.10); ROUGH PIGWEED IGE 0.72 kU/L (<0.10); SHEEP SORREL IGE 4.04 kU/L (<0.10); T001-IGE MAPLE BOX ELDER 7.44 kU/L (<0.10); T006-IGE MOUNTAIN CEDAR 1.03 kU/L (<0.10); T014 COTTONWOOD IGE 1.47 kU/L (<0.10); TIMOTHY GRASS IGE 11.90 kU/L (<0.10); WALNUT TREE IGE 2.42 kU/L (<0.10); WHITE ASH IGE 8.77 kU/L (<0.10); WHITE MULBERRY IGE 1.79 kU/L (<0.10)
[2025-01-18 09:37] LABS: INSULIN LEVEL 4.5 uIU/mL (<=18.4)
[2025-01-20 18:47] LABS: ENHANCED LIVER FIBROSIS SCORE 12.06 (<9.80)
== END ==
LOC: M SFHCPLAZ 07:44
PROVIDERS: ATTEND Family Medicine
DX: N18.32 Chronic kidney disease, stage 3b (principal); D63.1 Anemia in chronic kidney disease; D50.9 Iron deficiency anemia, unspecified; R73.01 Impaired fasting glucose; E55.9 Vitamin D deficiency, unspecified; L29.9 Pruritus, unspecified; K74.00 Hepatic fibrosis, unspecified; I50.32 Chronic diastolic (congestive) heart failure

== ENCOUNTER 2025-02-26 09:48 | Outpatient (CLI) | payer MEDICARE, BC ==
[~2025-02-26] VITALS: Ht 160 cm; Wt 51.4 kg
[~2025-02-26 09:48] MED LIST changes: +ALBUTEROL SULFATE 2.5 MG/0.5 ML INH CONCENTRATE NEB SOLN INH PRN; +EPINEPHrine INJ 1 MG/ML 1ML AMP IM PRN; +diphenhydrAMINE 50 MG/ML VIAL IV PRN
[2025-02-26 10:20] VITALS: BP 155/83; O2SAT 98
[2025-02-26] MEDS: FERRIC CARBOXYMALTOSE 750 MG (VIAL MATE) IN 100ML NS IV ONE (10:45)
[2025-02-26 11:30] VITALS: BP 154/75; O2SAT 99
== END 2025-02-26 11:35 ==
LOC: M INFU 09:48
PROVIDERS: ATTEND Family Medicine
DX: D50.9 Iron deficiency anemia, unspecified (principal)
CPT/HCPCS: 76700; 96365; J1439

== ENCOUNTER → 2025-02-26 | Outpatient (CLI) | payer MEDICARE, BC | LOC: M RAD 09:47 | PROVIDERS: ATTEND Family Medicine | DX: K74.00 Hepatic fibrosis, unspecified (principal); K82.8 Other specified diseases of gallbladder; D73.89 Other diseases of spleen ==